=== PATIENT | female | born 1940 | race Caucasian/White ===

== ENCOUNTER 2016-11-09 13:06 | Inpatient (IN) | payer MEDICARE, OTHER ==
[~2016-11-09] VITALS: Ht 170.2 cm; Wt 84.2 kg
[~2016-11-09 13:06] MED LIST: ALLO300T2 PO; ALPR0.5T8 PO; CLOP75TA3 PO; DESV100T PO; FENT1PAT9 TOP; FUR20 PO; HYDR-4003 PO; METO25TA99 PO; NORT50CA PO; PANT20TA2 PO; PRV40T PO; TIZA2TAB3 PO
[2016-11-09 13:21] VITALS: BP 116/83; PULSE 82; RESP 16; O2SAT 98
[2016-11-09 13:51] VITALS: BP 132/61; PULSE 91; RESP 22; O2SAT 95
--- NOTE | 2016-11-09 14:02 | ED.REPORT ---
HPI-General Illness Date of Service Nov 09, 2016 ED Provider: Carl Reid Patient is a 76 year old female who presents to the ED s/p a ground level fall with LOC 6 days ago. She came to the ED after her fall but did not want to wait to be seen. Associated symptoms include nausea, vomiting, R arm pain, headache ( since resolved), chest tenderness, and abdominal pain. She is not on blood thinners but was before. She has a urology appt on the . Nursing Notes Stated Complaint: ABDOMINAL PAIN Chief Complaint: Multiple Trauma/Fall Nursing Notes Reviewed: Yes Allergies: Coded Allergies: venlafaxine (Verified Allergy, Severe, rash, 11/09/16) Pt reports bruising all over body, increased swelling hydroxyzine (Verified Allergy, Unknown, agitation, 11/09/16) Scheduled Allopurinol (Allopurinol) 300 Mg Tablet 300 MG PO HS Alprazolam (Alprazolam) 0.5 Mg Tablet 0.5 MG PO DAILY Clopidogrel Bisulfate (Plavix) 75 Mg Tablet 75 MG PO DAILY Desvenlafaxine Succinate ER (Pristiq ER) 100 Mg Tab.er.24h 50 MG PO DAILY TAKE 50MG DAILY Fentanyl 50 mcg/hr Patch (Fentanyl 50 mcg/hr Patch) 1 Each Patch.td72 1 EACH TOP Q3D Furosemide (Furosemide) 20 Mg Tab 20 MG PO DAILY Hydrocodone-Acetaminophen 5-325 mg (Hydrocodone-Acetaminophen 5-325 mg) 1 Each Tablet 2 EACH PO BID Metoprolol Succinate ER (Metoprolol Succinate ER) 25 Mg Tab.er.24h 25 MG PO BID Nortriptyline (Nortriptyline) 50 Mg Capsule 50 MG PO HS Pantoprazole DR (Pantoprazole DR) 20 Mg Tablet.dr 20 MG PO DAILY Pravastatin (Pravachol) 40 Mg Tab 40 MG PO HS Tizanidine (Tizanidine) 2 Mg Tablet 2 MG PO Q12H General Time Seen by MD: 14:02 Chief Complaint Other (Ground level fall) Hx Obtained From: Patient, Spouse Arrived By: Walk-in Past Medical History Past Medical History Unspecified CHF with mitral valve regurgitation Aortic stenosis Depression GERD Gout Anxiety/Insomnia CVA - small lacunar infarcts in bilateral BG in 2006 Chronic anemia on iron replacement therapy Renal Cell Carcinoma s/p right nephrectomy 4 years ago Breast cancer, 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 - followed by wound center Reports: Hyperlipidemia, Hypertension Reports: Renal insufficiency Past Surgical History Lumpectomy right breast Left breast mastectomy Nephrectomy of right kidney with axillary lymph node removal Left clavicular fracture repair Cholecystectomy Hysterectomy in her 30's Cataracts bilaterally Low back surgery x 2 Appendectomy Tonsillectomy Aortic valve replacement at [facility] Ovary removal Family History Father of [place] at 50, was a chronic smoker and alcoholic Mother of IA in her late 60's, was a chronic smoker and alcoholic Smoking History Never Smoker Social History [facility] [place] on November 2014. Alcohol Use: Denies alcohol use Drug Use: Denies drug use Other Social History: Good social support, , Local resident Occupation lives with Ambulatory Status Independent Review of Systems Full Review of Systems Constitutional: Denies: Fever Cardiovascular: Reports: Chest pain (tenderness ) GI: Reports: Abdominal pain (R side ), Nausea, Vomiting Musculoskeletal: Reports: Extremity pain (R arm ) Neurologic: Reports: Change LOC, Headache Complete sys rev & neg: except as marked. Physical Exam Vital Signs Vital Signs Date Time Temp Pulse Resp B/P Pulse Ox O2 Delivery O2 Flow Rate FiO2 11/09/16 13:51 36.9 91 22 132/61 95 Room Air 11/09/16 13:21 36.4 82 16 116/83 98 Room Air Initial VS: Reviewed General/Constitutional: Well-developed, Well-nourished Head / Eyes: Atraumatic, Normocephalic, PERRL Skin: Warm, Dry Neurologic: Alert, Oriented, Nonfocal Psychiatric: Mood/affect normal, Behavior normal, Normal thought content Neck: Atraumatic Midline cervical tenderness Respiratory / Chest: No respiratory distress R chest wall tenderness. Tenderness/Guarding/Rebound: Positive: Tender RUQ... Flank / Spine / Paraspinal: Negative: Lumbar spine tender..., Thoracic spine tender... Interpretation & Diagnostics Lab Results Interpretation Result Diagram: 11/09/16 1459 11/09/16 1459 Test 11/09/16 14:59 11/09/16 17:15 White Blood Count 9.5th/mm3 (3.8-10.1) Red Blood Count 4.15mil/mm3 (3.90-5.20) Hemoglobin 12.6g/dL (12.0-15.6) Hematocrit 38.5% (35.0-46.0) Mean Corpuscular Volume 92.8fL (81-100) Mean Corpuscular Hemoglobin 30.4pg (27.0-35.0) Mean Corpuscular Hemoglobin Concent 32.7% (32.0-37.0) Red Cell Distribution Width 14.9% (12.3-15.4) Platelet Count 181bil/L (150-400) Neutrophils (%) (Auto) 66.0% (40-74) Lymphocytes (%) (Auto) 23.9% (14-46) Monocytes (%) (Auto) 7.2% (4-12) Eosinophils (%) (Auto) 2.5% (0-5) Basophils (%) (Auto) 0.2% (0-3) Sodium Level 135mEq/L (134-144) Potassium Level 4.0mEq/L (3.5-5.2) Chloride Level 98mEq/L (97-108) Carbon Dioxide Level 24mmol/L (18-29) Blood Urea Nitrogen 26mg/dL (8-27) Creatinine 1.26mg/dL (0.57-1.00) Estimat Glomerular Filtration Rate 59mL/min (>59) Glucose Level 222mg/dL (60-99) Calcium Level 9.5mg/dL (8.5-10.1) Total Bilirubin 0.3mg/dL (0.0-1.2) Aspartate Amino Transf (AST/SGOT) 25U/L (0-50) Alanine Aminotransferase (ALT/SGPT) 11U/L (0-32) Alkaline Phosphatase 90U/L (25-165) Total Protein 7.0g/dL (6.4-8.4) Albumin 3.9g/dL (3.4-5.0) Urine Color Yellow (YELLOW) Urine Appearance Clear (CLEAR,HAZY) Urine pH 5.5 (5.0-8.0) Urine Specific [place] 1.015 (1.003-1.035) Urine Protein Negativemg/dL (NEG,TRACE) Urine Glucose (UA) Negativemg/dL (NEGATIVE) Urine Ketones Negativemg/dL (NEGATIVE) Urine Occult Blood Trace (NEGATIVE) Urine Nitrite Negative (NEGATIVE) Urine Bilirubin Negative (NEGATIVE) Urine Urobilinogen Normalmg/dL (NORMAL) Urine Leukocyte Esterase Trace (NEGATIVE) Urine RBC 0-2/hpf (0-2) Urine WBC 0-5/hpf (0-5) Urine Epithelial Cells None/hpf (NONE-MOD) Urine Crystals None seen (NONE SEEN) Urine Bacteria Few/hpf (NONE-FEW) Urine Hyaline Casts None/lpf (NONE) Urine Granular Casts None seen (NONE SEEN) Urine Waxy Casts None seen (NONE SEEN) Urine Red Blood Cell Casts None seen (NONE SEEN) Urine White Blood Cell Casts None seen (NONE SEEN) Urine Mucus Present (None Seen) Urine Trichomonas None seen (NONE SEEN) Urine Yeast None (NONE SEEN) Urinalysis Comment None CT Head Interpretation CT BRAIN: IMPRESSION: No acute intracranial process. Dictated by: Drew Brown M.D. on 11/09/2016 at 16:42 Approved by: Drew Brown M.D. on 11/09/2016 at 16:42 Study: Head CT no contrast Interpretation / Wet Read by: Interpret - Radiologist CT Abd / Pelvis Interpretation IMPRESSION: 1. Acute right seventh rib fracture. Chronic appearing right 7th - 11th rib fractures. 2. Small, approximately 0.7 cm in maximum diameter, wedge-shaped, hypoattenuating focus in the posterior-lateral subcapsular spleen may represent a small splenic laceration (grade 1) or subacute infarct. No splenic subcapsular hematoma identified. 3. Large low-density fluid collection with peripheral enhancement in subcutaneous fat of pelvic pannus most compatible with posterior medics seroma or abscess. Please correlate with clinical and laboratory data. 3. Atherosclerosis. 4. No free intraperitoneal fluid or air. 5. Postsurgical changes. Dictated by: Meg Amaro MD, PhD on 11/09/2016 at 17:06 Approved by: Meg Amaro MD, PhD on 11/09/2016 at 17:06 Study type: Abdominal CT IV contrast Interpretation / Wet Read by: Interpret - Radiologist CT C-Spine Interpretation IMPRESSION: 1. No acute fracture. No acute osseous lesion. If symptoms and/or clinical suspicion for pathology persists, evaluation with MRI may be helpful for further assessment. 2. Status post C4-C6 ACDF. 3. Anterior wedging of the C7 vertebral body stable compared to prior examination. Dictated by: Meg Amaro MD, PhD on 11/09/2016 at 16:51 Approved by: Meg Amaro MD, PhD on 11/09/2016 at 16:51 Study type: CT no contrast Interpretation / Wet Read by: Interpret - Radiologist Re-Eval/Medical Decision Med Decision/Clinical Course Concern with multiple rib fractures as well as a possible splenic laceration, patient is tender in left upper quadrant, we will plan to admit the patient. Given that this is a 6-day-old injury and the patient is human dynamically stable, as well as multiple medical comorbidities, trauma surgery has requested a hospitalist admit with a surgical consult. Time of Eval: 17:58 Re-Evaluation/Progress Note: Discussed plan for admission. Patient understands and agrees with plan. All questions addressed at this time. Consultation #1: Referral / Consult Name: Rishabh Cantu MD Consulted With: Surgeon Call Returned at: 17:23 Cone Winder: Will see patient, Agrees with plan Note: Discussed patient's case. Requests medicine admit and surgery consult. Consultation #2: Referral / Consult Name: Kyle Lutz MD Consulted With: Hospitalist Call Returned at: 17:55 Cone Winder: Agrees with eval, Agrees with plan, Accepts admit Note: Discussed patient's case. Accepts admit. Counseled Regarding: Diagnosis, Lab results, Need for admission Discharge & Departure Primary Impression: Rib fractures Additional Impression: Splenic laceration Disposition: ADMITTED TO HOSPITAL Referrals: Krish Armstrong MD (PCP) Scribe Attestation Portions of this note were transcribed by Isai Singh. I, Dr. Reid personally performed the history, physical exam and medical decision-making; I reviewed and confirmed the accuracy of the information in the transcribed note. Signed by: Isai Singh 11/09/16, 0566 copies to: Krish Armstrong MD, Timothy S DO Nov 09, 2016 14:02 ISAI SINGH Nov 09, 2016 14:11
[2016-11-09] MEDS ORDERED: Ondansetron 2 mg/mL 2 mL Inj IVPUSH ONE (14:40)
[2016-11-09] MEDS ORDERED: 0.9% Sodium Chloride 1,000 ML IV ONE (14:40)
[2016-11-09] MEDS ORDERED: HYDROmorphone 0.5 mg/0.5 mL iSecure Syringe IVPUSH PRN ×2 (14:40→23:05)
[2016-11-09 15:10] LABS: BASOPHILS % (AUTO) 0.2 % (0-3); EOSINOPHILS % (AUTO) 2.5 % (0-5); MONOCYTES % (AUTO) 7.2 % (4-12); Mean Corpuscular Hemoglobin 30.4 pg (27.0-35.0); Mean Corpuscular Volume 92.8 fL (81-100); Platelet Count 181 bil/L (150-400)
--- NOTE | 2016-11-09 16:43 | DRSVH ---
PROCEDURE: CT BRAIN WITHOUT CONTRAST ([id number]) INDICATIONS: fall, right chest and abd pain TECHNIQUE: Noncontrast 4.5 mm thick angled axial sections acquired from the foramen magnum to the vertex, with c oronal reformats. COMPARISON: [facility], CT, BRAIN W/O CONTRAST, 07/27/2007, 15:50. FINDINGS: Image quality: Excellent. CSF spaces: Basal cisterns are patent. No extra-axial fluid collections. The ventricles are symmet opal in size and shape. Brain: No intracranial bleeds or masses. There is cerebral volume loss for age, with resultant vent ricular and sulcal prominence. There are periventricular and deep white matter chronic small vessel ischemic changes. There is intracranial internal carotid artery atherosclerosis. Skull and face: Calvarium and visualized facial bones appear intact, without suspicious lesions. Sinuses: Visualized sinuses and mastoids are clear. IMPRESSION: No acute intracranial process. Dictated by: Drew Brown M.D. on 11/09/2016 at 16:42 Approved by: Drew Brown M.D. on 11/09/2016 at 16:42
--- NOTE | 2016-11-09 16:52 | DRSVH ---
PROCEDURE: CT CERVICAL SPINE WITHOUT CONTRAST ([id number]) INDICATIONS: fall, right chest and abd pain TECHNIQUE: Noncontrast 3 mm thick sections acquired from the skull base to the T4 level. Sagittal and coronal r eformats were then constructed. For radiation dose reduction, the following was used: automated exp osure control, adjustment of mA and/or kV according to patient size. COMPARISON: [facility], CT, C-SPINE W/O CONTRAST, 04/25/2015, 16:18. FINDINGS: Image quality: Excellent. Bones: Postsurgical changes compatible with C4-C6 ACDF noted. Anterior wedging of the C7 vertebral b kali is stable compared prior CT scan. No acute fractures or dislocations. Visualized superior ribs a re intact. Multilevel degenerative disc disease and facet arthropathy are noted. Soft tissues: Prevertebral soft tissues are normal in thickness. No paravertebral hematomas. No ap ical pneumothoraces. 7 mm hypoattenuating nodule noted in the left lobe of the thyroid gland. Atheros clerotic calcifications noted. IMPRESSION: 1. No acute fracture. No acute osseous lesion. If symptoms and/or clinical suspicion for pathology pe rsists, evaluation with MRI may be helpful for further assessment. 2. Status post C4-C6 ACDF. 3. Anterior wedging of the C7 vertebral body stable compared to prior examination. Dictated by: Meg Amaro MD, PhD on 11/09/2016 at 16:51 Approved by: Meg Amaro MD, PhD on 11/09/2016 at 16:51
--- NOTE | 2016-11-09 17:07 | DRSVH ---
PROCEDURE: CT CHEST, ABDOMEN AND PELVIS WITH CONTRAST ([id number]) INDICATIONS: fall, right chest and abd pain TECHNIQUE: After the administration of intravenous contrast, 5 mm thick sections acquired from the lung apices t o the symphysis. 5 mm thick coronal and sagittal reformats were acquired. Additional 7 mm thick cor onal maximum intensity projection (MIP) reformats acquired through the lungs. Optional 10-minute del ayed imaging may be performed from the kidneys to the bladder. For radiation dose reduction, the fol lowing was used: automated exposure control, adjustment of mA and/or kV according to patient size. COMPARISON: None. FINDINGS: Image quality: Excellent. CHEST: Lungs: No pulmonary contusions or lacerations. No acute airspace opacities. No pneumothorax or hem othorax. Central and peripheral airways appear patent and normal in caliber. Mediastinum: No mediastinal hematomas. Heart size is normal. Prosthetic aortic valve noted. Dense a therosclerotic ossifications noted in the aorta, great vessels and the coronary vasculature. No peric ardial effusion. Thoracic aorta and pulmonary arteries demonstrate normal size and enhancement. No mediastinal or hilar adenopathy. Esophagus is normal in caliber. No hiatal hernia. Chest wall: Postsurgical changes compatible with prior right mastectomy and right axillary node diss ection noted. Chronic appearing left posterior seventh-11th rib fractures are noted. Acute appearing right lateral sixth rib fracture is noted. No subcutaneous emphysema. No axillary or supraclavicular adenopathy. Thyroid gland contains a 0.7 cm in diameter hypoattenuating nodule in the left lobe.. ABDOMEN: Solid organs: Liver and spleen are normal in size. Small, wedge-shaped hypoattenuating focus is note d in the posterior lateral periphery of the spleen (series 8, image [id number] which may represent a small , approximately 0.7 cm subcapsular laceration versus small subacute infarct in. No splenic subcapsula r hematoma is identified. Gallbladder surgically absent. Biliary system is non-dilated. Pancreas en hances normally, without transection. Fatty atrophy of the pancreas is noted. No adrenal hematomas. Both kidneys enhance normally, without hydronephrosis or lacerations. Right kidney is absent; please correlate with surgical history. Left renal cysts are noted. Peritoneum and bowel: No free fluid or air. Unenhanced bowel loops demonstrate normal wall thicknes s and caliber. Nodes and vessels: No retroperitoneal or mesenteric adenopathy. Aorta and inferior vena cava are no rmal in size and enhancement. Scattered atherosclerotic calcifications are noted in the abdominal pel mirna vasculature. Miscellaneous: No ventral hernias. PELVIS: Genitourinary: Bladder wall thickness is normal. Miscellaneous: No inguinal hernias or adenopathy. There is a 4.2 x 12.5 x 15.7 cm fluid collection i n the anterior subcutaneous fat of the pelvic pannus. The subcutaneous fluid collection has an enhanc ing wall may represent posttraumatic seroma or abscess. Please correlate with clinical and laboratory data. Multiple injection granulomas noted in the liver the subcutaneous fat of the buttocks bilatera lly. Bones: Pelvic ring and hip joints appear intact. No vertebral compression fractures. Degenerative d isc disease and facet arthropathy are noted in the spine. Convex left curvature of the lumbar junctio n is noted. Postsurgical changes compatible with lower lumbar spine laminectomy is noted. IMPRESSION: 1. Acute right seventh rib fracture. Chronic appearing right 7th - 11th rib fractures. 2. Small, approximately 0.7 cm in maximum diameter, wedge-shaped, hypoattenuating focus in the neurology director ior-lateral subcapsular spleen may represent a small splenic laceration (grade 1) or subacute infarct . No splenic subcapsular hematoma identified. 3. Large low-density fluid collection with peripheral enhancement in subcutaneous fat of pelvic nfetaly s most compatible with posterior medics seroma or abscess. Please correlate with clinical and laborat ory data. 3. Atherosclerosis. 4. No free intraperitoneal fluid or air. 5. Postsurgical changes. Dictated by: Meg Amaro MD, PhD on 11/09/2016 at 17:06 Approved by: eMg Amaro MD, PhD on 11/09/2016 at 17:06
[2016-11-09] MEDS: fentaNYL-PF 50 mCg/mL 2 mL Inj IVPUSH PRN ×2 (17:40→18:24)
[2016-11-09 17:47] LABS: APPEARANCE,URINE CLEAR (CLEAR,HAZY); COLOR,URINE YELLOW (YELLOW)
[2016-11-09 17:48] LABS: OCCULT BLOOD,URINE TRACE (NEGATIVE); PH,URINE 5.5 (5.0-8.0); UROBILINOGEN,URINE NORMAL (NORMAL)
[2016-11-09 18:00] VITALS: BP 146/65; PULSE 80; RESP 16; O2SAT 98
[2016-11-09] MEDS ORDERED: Ondansetron 2 mg/mL 2 mL Inj IVPUSH PRN (18:05)
[2016-11-09] MEDS ORDERED: Alum-Mag Hydrox-Simeth 30 mL Suspension PO PRN (18:05)
[2016-11-09 20:06] VITALS: PULSE 97; RESP 18; O2SAT 96
[2016-11-09 20:07] VITALS: PULSE 97; RESP 18; O2SAT 96
[2016-11-09 20:20] VITALS: BP 143/81; PULSE 72; RESP 20; O2SAT 98
--- NOTE | 2016-11-09 21:03 | PCM.HPMED ---
Subjective Date of Service Nov 09, 2016 Primary Provider: Admitting Physician: Kyle Lutz MD Primary Care Physician: Krish Armstrong MD Attending Physician: Kyle Lutz MD Chief Complaint: right sided pain ongoing HISTORY was OBTAINED FROM PATIENT / MEDITECH NOTES History of present illness 76-year-old female, ground-level fall with LOC 5days ago, picked up candy off ground but stood up too fast became lightheaded fell to right side then did not want to wait in the ER to be seen at that time, NOW presented today due to worsening pain-Right ribs-flank, nausea w/ resolved headache. On asa and plavix since TAVR a few weeks ago at w/ ongoing incision groin pain. chronic arthritis pain wallace right shoulder-fent patch/norco at baseline. Generally orthostatic lightheadness is mildly better since TAVR w/ known AoStenosis since at least 04/2016. Review of Systems - none of the following - F/C/sick contact / wt change/ sob / cough / cp / acid reflux / n/v/diarrhea / bleeding/bruising / leg swelling / change in voiding Pending urology visit Scheduled Allopurinol (Allopurinol) 300 Mg Tablet 300 MG PO HS Alprazolam (Alprazolam) 0.5 Mg Tablet 0.5 MG PO DAILY Clopidogrel Bisulfate (Plavix) 75 Mg Tablet 75 MG PO DAILY Desvenlafaxine Succinate ER (Pristiq ER) 100 Mg Tab.er.24h 50 MG PO DAILY TAKE 50MG DAILY Fentanyl 50 mcg/hr Patch (Fentanyl 50 mcg/hr Patch) 1 Each Patch.td72 1 EACH TOP Q3D Furosemide (Furosemide) 20 Mg Tab 20 MG PO DAILY Hydrocodone-Acetaminophen 5-325 mg (Hydrocodone-Acetaminophen 5-325 mg) 1 Each Tablet 2 EACH PO BID Metoprolol Succinate ER (Metoprolol Succinate ER) 25 Mg Tab.er.24h 25 MG PO BID Nortriptyline (Nortriptyline) 50 Mg Capsule 50 MG PO HS Pantoprazole DR (Pantoprazole DR) 20 Mg Tablet.dr 20 MG PO DAILY Pravastatin (Pravachol) 40 Mg Tab 40 MG PO HS Tizanidine (Tizanidine) 2 Mg Tablet 2 MG PO Q12H Past Medical History Unspecified CHF with mitral valve regurgitation Aortic stenosis s/p TAVR Depression GERD Gout Anxiety/Insomnia CVA - small lacunar infarcts in bilateral BG in 2006 Chronic anemia on iron replacement therapy Renal Cell Carcinoma s/p right nephrectomy Breast cancer, 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 - followed by wound center Hyperlipidemia, Hypertension renal insufficiency Past Surgical History Left clavicular fracture repair Cholecystectomy Hysterectomy in her 30's Cataracts bilaterally c spine and Low back surgeries Appendectomy Tonsillectomy Ovary removal Family History Father of [place] at 50, was a chronic smoker and alcoholic Mother of [place] in her late 60's, was a chronic smoker and alcoholic social History Never Smoker Allergies Coded Allergies: venlafaxine (Verified Allergy, Severe, rash, 11/09/16) Pt reports bruising all over body, increased swelling hydroxyzine (Verified Allergy, Unknown, agitation, 11/09/16) PMH Social History Hx Alcohol Use: No Hx Substance Use: No Hx Tobacco Use: No Smoking Status: Never Smoker Exam Vital Signs Vital Sign - Last Date Time Temp Pulse Resp B/P Pulse Ox O2 Delivery O2 Flow Rate FiO2 11/09/16 20:07 36.9 97 18 96 Room Air Lab and Diagnostics Labs Exam on admission 2L O2 NAD A and O x 3 mood affect WNL NC/AT no icterus no injected eyes EOMI PERRL /no pharyngeal lesions/ no oral lesions / hearing intact Supple neck CTAB equal chest rise / no accessory muscle use / speaks in full sentences / no rrw RRR S1 S2 / no mrg / 2+ radial pulses Soft nt nd + BS no hepatosplenomegaly No edema no cyanosis no ecchymosis of lower extremities No rash / no jaundice GARNER CT BRAIN WITHOUT CONTRAST ([id number]) INDICATIONS: fall, right chest and abd pain TECHNIQUE: Noncontrast 4.5 mm thick angled axial sections acquired from the foramen magnum to the vertex, with coronal reformats. COMPARISON: [facility], CT, BRAIN W/O CONTRAST, 07/27/2007, 15:50. FINDINGS: Image quality: Excellent. CSF spaces: Basal cisterns are patent. No extra-axial fluid collections. The ventricles are symmetric in size and shape. Brain: No intracranial bleeds or masses. There is cerebral volume loss for age , with resultant ventricular and sulcal prominence. There are periventricular and deep white matter chronic small vessel ischemic changes. There is intracranial internal carotid artery atherosclerosis. Skull and face: Calvarium and visualized facial bones appear intact, without suspicious lesions. Sinuses: Visualized sinuses and mastoids are clear. IMPRESSION: No acute intracranial process. CT CERVICAL SPINE WITHOUT CONTRAST ([id number]) INDICATIONS: fall, right chest and abd pain TECHNIQUE: Noncontrast 3 mm thick sections acquired from the skull base to the T4 level. Sagittal and coronal reformats were then constructed. For radiation dose reduction, the following was used: automated exposure control, adjustment of mA and/or kV according to patient size. COMPARISON: [facility], CT, C-SPINE W/O CONTRAST, 04/25/2015, 16:18. FINDINGS: Image quality: Excellent. Bones: Postsurgical changes compatible with C4-C6 ACDF noted. Anterior wedging of the C7 vertebral body is stable compared prior CT scan. No acute fractures or dislocations. Visualized superior ribs are intact. Multilevel degenerative disc disease and facet arthropathy are noted. Soft tissues: Prevertebral soft tissues are normal in thickness. No paravertebral hematomas. No apical pneumothoraces. 7 mm hypoattenuating nodule noted in the left lobe of the thyroid gland. Atherosclerotic calcifications noted. IMPRESSION: 1. No acute fracture. No acute osseous lesion. If symptoms and/or clinical suspicion for pathology persists, evaluation with MRI may be helpful for further assessment. 2. Status post C4-C6 ACDF. 3. Anterior wedging of the C7 vertebral body stable compared to prior examination. CT CHEST, ABDOMEN AND PELVIS WITH CONTRAST ([id number]) INDICATIONS: fall, right chest and abd pain TECHNIQUE: After the administration of intravenous contrast, 5 mm thick sections acquired from the lung apices to the symphysis. 5 mm thick coronal and sagittal reformats were acquired. Additional 7 mm thick coronal maximum intensity projection (MIP) reformats acquired through the lungs. Optional 10-minute delayed imaging may be performed from the kidneys to the bladder. For radiation dose reduction, the following was used: automated exposure control, adjustment of mA and/or kV according to patient size. COMPARISON: None. FINDINGS: Image quality: Excellent. CHEST: Lungs: No pulmonary contusions or lacerations. No acute airspace opacities. No pneumothorax or hemothorax. Central and peripheral airways appear patent and normal in caliber. Mediastinum: No mediastinal hematomas. Heart size is normal. Prosthetic aortic valve noted. Dense atherosclerotic ossifications noted in the aorta, great vessels and the coronary vasculature. No pericardial effusion. Thoracic aorta and pulmonary arteries demonstrate normal size and enhancement. No mediastinal or hilar adenopathy. Esophagus is normal in caliber. No hiatal hernia. Chest wall: Postsurgical changes compatible with prior right mastectomy and right axillary node dissection noted. Chronic appearing left posterior seventh- 11th rib fractures are noted. Acute appearing right lateral sixth rib fracture is noted. No subcutaneous emphysema. No axillary or supraclavicular adenopathy. Thyroid gland contains a 0.7 cm in diameter hypoattenuating nodule in the left lobe.. ABDOMEN: Solid organs: Liver and spleen are normal in size. Small, wedge-shaped hypoattenuating focus is noted in the posterior lateral periphery of the spleen (series 8, image [id number] which may represent a small, approximately 0.7 cm subcapsular laceration versus small subacute infarct in. No splenic subcapsular hematoma is identified. Gallbladder surgically absent. Biliary system is non- dilated. Pancreas enhances normally, without transection. Fatty atrophy of the pancreas is noted. No adrenal hematomas. Both kidneys enhance normally, without hydronephrosis or lacerations. Right kidney is absent; please correlate with surgical history. Left renal cysts are noted. Peritoneum and bowel: No free fluid or air. Unenhanced bowel loops demonstrate normal wall thickness and caliber. Nodes and vessels: No retroperitoneal or mesenteric adenopathy. Aorta and inferior vena cava are normal in size and enhancement. Scattered atherosclerotic calcifications are noted in the abdominal pelvic vasculature. Miscellaneous: No ventral hernias. PELVIS: Genitourinary: Bladder wall thickness is normal. Miscellaneous: No inguinal hernias or adenopathy. There is a 4.2 x 12.5 x 15.7 cm fluid collection in the anterior subcutaneous fat of the pelvic pannus. The subcutaneous fluid collection has an enhancing wall may represent posttraumatic seroma or abscess. Please correlate with clinical and laboratory data. Multiple injection granulomas noted in the liver the subcutaneous fat of the buttocks bilaterally. Bones: Pelvic ring and hip joints appear intact. No vertebral compression fractures. Degenerative disc disease and facet arthropathy are noted in the spine. Convex left curvature of the lumbar junction is noted. Postsurgical changes compatible with lower lumbar spine laminectomy is noted. IMPRESSION: 1. Acute right seventh rib fracture. Chronic appearing right 7th - 11th rib fractures. 2. Small, approximately 0.7 cm in maximum diameter, wedge-shaped, hypoattenuating focus in the posterior-lateral subcapsular spleen may represent a small splenic laceration (grade 1) or subacute infarct. No splenic subcapsular hematoma identified. 3. Large low-density fluid collection with peripheral enhancement in subcutaneous fat of pelvic pannus most compatible with posterior medics seroma or abscess. Please correlate with clinical and laboratory data. 3. Atherosclerosis. 4. No free intraperitoneal fluid or air. 5. Postsurgical changes. Result Diagram: 11/09/16 1459 11/09/16 1456 Assessment & Plan Active issues and reason for admission 76-year-old female, on dual antiplatlet for recent TAVR, possibly w/ grade 1 splenic laceration with R rib fractures due to ground-level fall 5 days ago. Right rib fracture/chronic pain/opioid abuse hx -- General surgeon Delvis Cantu monitoring -recommended SCHO[employer] EXAMINER for Right rib fracutre, aware of radiographic abdominal subcutaneous finding (multiple paracentesis hx w/o etiology) and questionable splenic lac -- consider dc fent patch and norco w/ SCHOOL EXAMINER dilaudid --close monitor TAVR, stable Hg from 2 months ago, fell 5 days ago --Qday Hg, monitor --curbsided Dr. Geronimo watchmaker apprentice - recommended to keep plavix/asa, consdier holding plavix if splenic lac/Hg worsens Chronic issues known prior to admission, present on admission dCHF with mitral valve regurgitation Aortic stenosis s/p TAVR Depression GERD Gout Anxiety/Insomnia CVA - small lacunar infarcts in bilateral BG in 2006 Chronic anemia on iron replacement therapy Renal Cell Carcinoma s/p right nephrectomy Breast cancer, estrogen dependent s/p tamoxifen h/o GI bleeding mild dementia chronic wound right great toe - followed by wound center Hyperlipidemia, Hypertension renal insufficiency --resume all home meds Diet cardiac DVT prophylaxis scd Code full Disposition inpatient status Assessment and plan were discussed with patient. Kyle Lutz MD Nov 09, 2016 21:03 Kyle Lutz MD Nov 09, 2016 21:03
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
[2016-11-09] MEDS: HYDROcodone-APAP 5-325 mg Tablet PO SCH (23:15)
[2016-11-09] MEDS: MeTOProlol XL 25 mg ER24 Tablet PO SCH (23:20)
[2016-11-10] VITALS (11 sets, daily range): BP systolic 128–152; BP diastolic 69–84; PULSE 87–96; RESP 12–20; O2SAT 91–98
[2016-11-10] MEDS ORDERED: Glucose 40% Oral Gel 15 Gm Tube PO PRN (00:05)
[2016-11-10] MEDS: Dextrose 5% 500 ML IV SCH ×2 (01:03→23:34)
[2016-11-10] MEDS: HYDROmorphone PCA 0.2 mg/mL 30 mL Inj IV PRN ×2 (01:03→14:53)
--- NOTE | 2016-11-10 02:24 | NUR ---
Admit to Room 1024 Patient arrived to room 1024 at 2019 via gurney accompanied by ER staff. VSS. Pt reported pain at a 8/10 on pain scaled. Pain medication administered. Patient was a little forgetful in regards to home meds. Per pt, her is in charge of giving her all medications. Patient cooperative . Call light in reach.
[2016-11-10 06:01] LABS: BASOPHILS % (AUTO) 0.3 % (0-3); EOSINOPHILS % (AUTO) 3.4 % (0-5); MONOCYTES % (AUTO) 6.8 % (4-12); Mean Corpuscular Hemoglobin 29.9 pg (27.0-35.0); Mean Corpuscular Volume 93.4 fL (81-100); NEUTROPHILS % (AUTO) 54.2 % (40-74); Platelet Count 168 bil/L (150-400)
[2016-11-10] MEDS: ALPRAZolam 0.5 mg Tablet PO SCH (08:20)
[2016-11-10] MEDS: Pantoprazole 20 mg ER24 Tablet PO SCH (08:20)
[2016-11-10] MEDS: MeTOProlol XL 25 mg ER24 Tablet PO SCH ×2 (08:21→21:44)
[2016-11-10] MEDS: Insulin LISPRO 300 Unit/3 mL Inj SUBQ SCH ×4 (08:23→21:44)
[2016-11-10] MEDS: HYDROcodone-APAP 5-325 mg Tablet PO SCH (08:30)
[2016-11-10] MEDS ORDERED: PRISTIQ 50 MG PO SCH (08:30)
--- NOTE | 2016-11-10 09:53 | DRSVH ---
PROCEDURE: X-RAY CHEST ONE VIEW, PORTABLE ([id number]) INDICATIONS: right rib fracture TECHNIQUE: One view of the chest was acquired. COMPARISON: [facility], CT, CT CHEST ABD PELVIS W CON, 11/09/2016, 16:22. [facility], CR, XR CHEST 1VW (PORTABLE), 08/31/2016, 5:55. FINDINGS: Surgical changes and devices: Cholecystectomy clips. Right axillary surgical clips.. Lungs and pleura: No pleural effusions or pneumothorax. Lungs are clear. Elevation of the right he midiaphragm redemonstrated. Mediastinum: Mediastinal contours appear normal. Heart size is normal. Bones and chest wall: No change in minimally displaced acute right sixth posterior-lateral rib fractu re. Lower cervical spine fixation hardware redemonstrated. IMPRESSION: 1. No change in mildly displaced right sixth posterior lateral rib fracture and no pneumothorax is se en. Dictated by: Steve SIMMONS Interpreted: Anu Amos MD on 11/10/2016 at 9:53 Transcribed by: RODNEY on 11/10/2016 at 9:53 Approved by: Anu Amos M.D. on 11/10/2016 at 16:14
--- NOTE | 2016-11-10 11:54 | PCM.PNMED ---
Subjective Date of Service Nov 10, 2016 Subjective Patient notes some right sided chest pain. He denies any shortness of breath. She has not really been very active or mobile since she has been here. Exam Vital Signs Vital Sign - Last Date Time Temp Pulse Resp B/P Pulse Ox O2 Delivery O2 Flow Rate FiO2 11/10/16 08:36 Supplement Oxygen 11/10/16 06:07 14 93 11/10/16 05:01 36.9 96 148/78 Intake and Output 11/09/16 11/09/16 11/10/16 Cumulative From/Thru 15:00 23:00 07:00 11/09/16 13:21 - 11/10/16 06:07 Intake Total 999 ml 498 ml 1497 ml Output Total 750 ml 750 ml Balance 999 ml -252 ml 747 ml Intake Oral 450 ml 450 ml IV Total 999 ml 48 ml 1047 ml Output Urine Total 750 ml 750 ml # Voids 3 3 # Bowel Movements 0 0 Exam Constitutional: Pleasant elderly lady who appears in mild pain distress Head: Normocephalic and medical Eyes: PERRLA DC EOMI Chest: Clear to auscultation there is tenderness over the right chest wall area Abdomen: Soft mild tenderness in the upper quadrants bilaterally. No rebound no guarding Extremities: No pedal edema Neuro: Alert and oriented 3, motor strength is intact bilaterally Psych: Mood and affect are appropriate Lab and Diagnostics Laboratory Tests 72 Hours Test 11/09/16 14:59 11/09/16 17:15 11/10/16 05:40 White Blood Count 9.5th/mm3 (3.8-10.1) 7.7th/mm3 (3.8-10.1) Red Blood Count 4.15mil/mm3 (3.90-5.20) 3.91mil/mm3 (3.90-5.20) Hemoglobin 12.6g/dL (12.0-15.6) 11.7g/dL (12.0-15.6) Hematocrit 38.5% (35.0-46.0) 36.5% (35.0-46.0) Mean Corpuscular Volume 92.8fL (81-100) 93.4fL (81-100) Mean Corpuscular Hemoglobin 30.4pg (27.0-35.0) 29.9pg (27.0-35.0) Mean Corpuscular Hemoglobin Concent 32.7% (32.0-37.0) 32.1% (32.0-37.0) Red Cell Distribution Width 14.9% (12.3-15.4) 15.0% (12.3-15.4) Platelet Count 181bil/L (150-400) 168bil/L (150-400) Neutrophils (%) (Auto) 66.0% (40-74) 54.2% (40-74) Lymphocytes (%) (Auto) 23.9% (14-46) 35.2% (14-46) Monocytes (%) (Auto) 7.2% (4-12) 6.8% (4-12) Eosinophils (%) (Auto) 2.5% (0-5) 3.4% (0-5) Basophils (%) (Auto) 0.2% (0-3) 0.3% (0-3) Sodium Level 135mEq/L (134-144) 136mEq/L (134-144) Potassium Level 4.0mEq/L (3.5-5.2) 4.1mEq/L (3.5-5.2) Chloride Level 98mEq/L (97-108) 99mEq/L (97-108) Carbon Dioxide Level 24mmol/L (18-29) 25mmol/L (18-29) Blood Urea Nitrogen 26mg/dL (8-27) 22mg/dL (8-27) Creatinine 1.26mg/dL (0.57-1.00) 1.04mg/dL (0.57-1.00) Estimat Glomerular Filtration Rate 59mL/min (>59) 73mL/min (>59) Glucose Level 222mg/dL (60-99) 161mg/dL (60-99) Calcium Level 9.5mg/dL (8.5-10.1) 9.1mg/dL (8.5-10.1) Total Bilirubin 0.3mg/dL (0.0-1.2) Aspartate Amino Transf (AST/SGOT) 25U/L (0-50) Alanine Aminotransferase (ALT/SGPT) 11U/L (0-32) Alkaline Phosphatase 90U/L (25-165) Total Protein 7.0g/dL (6.4-8.4) Albumin 3.9g/dL (3.4-5.0) Urine Color Yellow (YELLOW) Urine Appearance Clear (CLEAR,HAZY) Urine pH 5.5 (5.0-8.0) Urine Specific [place] 1.015 (1.003-1.035) Urine Protein Negativemg/dL (NEG,TRACE) Urine Glucose (UA) Negativemg/dL (NEGATIVE) Urine Ketones Negativemg/dL (NEGATIVE) Urine Occult Blood Trace (NEGATIVE) Urine Nitrite Negative (NEGATIVE) Urine Bilirubin Negative (NEGATIVE) Urine Urobilinogen Normalmg/dL (NORMAL) Urine Leukocyte Esterase Trace (NEGATIVE) Urine RBC 0-2/hpf (0-2) Urine WBC 0-5/hpf (0-5) Urine Epithelial Cells None/hpf (NONE-MOD) Urine Crystals None seen (NONE SEEN) Urine Bacteria Few/hpf (NONE-FEW) Urine Hyaline Casts None/lpf (NONE) Urine Granular Casts None seen (NONE SEEN) Urine Waxy Casts None seen (NONE SEEN) Urine Red Blood Cell Casts None seen (NONE SEEN) Urine White Blood Cell Casts None seen (NONE SEEN) Urine Mucus Present (None Seen) Urine Trichomonas None seen (NONE SEEN) Urine Yeast None (NONE SEEN) Urinalysis Comment None Result Diagram: 11/10/16 0540 11/10/16 0540 X-Rays, CTs and MRIs Patient Name: RUBEN MERINO MR#: [id number] Location: [facility] [place] Ordering Phys: Rishabh Cantu MD Date of Service: 11/10/16 0500 Caution: Report not yet finalized and possibly incomplete! PROCEDURE: X-RAY CHEST ONE VIEW, PORTABLE ([id number]) INDICATIONS: right rib fracture TECHNIQUE: One view of the chest was acquired. COMPARISON: [facility], CT, CT CHEST ABD PELVIS W CON, 11/09/2016, 16:22. [facility], CR, XR CHEST 1VW (PORTABLE), 08/31/2016, 5:55. FINDINGS: Surgical changes and devices: Cholecystectomy clips. Right axillary surgical clips.. Lungs and pleura: No pleural effusions or pneumothorax. Lungs are clear. Elevation of the right hemidiaphragm redemonstrated. Mediastinum: Mediastinal contours appear normal. Heart size is normal. Bones and chest wall: No change in minimally displaced acute right sixth posterior-lateral rib fracture. Lower cervical spine fixation hardware redemonstrated. IMPRESSION: 1. No change in mildly displaced right sixth posterior lateral rib fracture and no pneumothorax is seen. Dictated by: Steve Rice RRA Interpreted: Anu Amos MD on 11/10/2016 at 9: 53 Transcribed by: RODNEY on 11/10/2016 at 9:53 Assessment & Plan Active issues and reason for admission 76-year-old female, on dual antiplatlet for recent TAVR, possibly w/ grade 1 splenic laceration with R rib fractures due to ground-level fall 5 days ago. Right rib fracture/chronic pain/opioid abuse hx -- General surgeon Delvis Cantu monitoring -recommended STEEL HANGER for Right rib fracutre, aware of radiographic abdominal subcutaneous finding (multiple paracentesis hx w/o etiology) and questionable splenic lac -- consider dc fent patch and norco w/ STEEL HANGER dilaudid --close monitor -Repeat labs and repeat chest x-ray revealed no acute findings -Appreciate surgical input -We will proceed with physical therapy consultation today to ensure safety when discharged TAVR, stable Hg from 2 months ago, fell 5 days ago --Qday Hg, monitor --curbsided Dr. Geronimo eight arm operator - recommended to keep plavix/asa, consdier holding plavix if splenic lac/Hg worsens Chronic issues known prior to admission, present on admission dCHF with mitral valve regurgitation Aortic stenosis s/p TAVR Depression GERD Gout Anxiety/Insomnia CVA - small lacunar infarcts in bilateral BG in 2006 Chronic anemia on iron replacement therapy Renal Cell Carcinoma s/p right nephrectomy Breast cancer, estrogen dependent s/p tamoxifen h/o GI bleeding mild dementia chronic wound right great toe - followed by wound center Hyperlipidemia, Hypertension renal insufficiency --resume all home meds Diet cardiac DVT prophylaxis scd Code full Disposition inpatient status Assessment and plan were discussed with patient. Pain Evaluation: Adequate Pain Control VTE Mechanical Devices: Intermittant Pneumatic CD Time spent 30 minutes Fabiana Schreiber MD Nov 10, 2016 11:54
--- NOTE | 2016-11-10 13:28 | NUR ---
Transfer Patient transferred to room 247 -1. Report given to [place] receiving nurse. Pt's son notified of room transfer.
--- NOTE | 2016-11-10 14:48 | PROG NOTE ---
[address] [address] PROGRESS NOTE PATIENT: RUBEN MERINO : 1940 MR#: [id number] ADMIT: 11/09/2016 JOB ID: [id number] DATE: 11/10/2016 SUBJECTIVE: The patient is seen in followup after admission yesterday evening because of her fall almost a week ago resulting in a right rib fracture. She is still having pain. She denies nausea or vomiting. She denies shortness of breath. REVIEW OF SYSTEMS: Otherwise negative. She has not been out of bed yet today. PHYSICAL EXAMINATION: Temperature is 37.0, brachial blood pressure 128/69, pulse 88, respiratory rate 16, O2 sat on room air is 93%. She is alert. She actually is smiling and looks much more comfortable than yesterday. Right-sided chest wall tenderness as before from her rib fracture. No crepitus. LABORATORY RESULTS: White blood cell count has fallen to 7.7, hematocrit is 36.5, platelet count 168,000. Her glucose is down to 161. Creatinine is down to 1.04. Electrolytes are normal. Chest x-ray: No pneumothorax. IMPRESSION: Clinically stable. PLAN: Ambulate.
--- NOTE | 2016-11-10 14:58 | NUR ---
Case Management: Attempted to give IMM at 2:55 pm, PT working with patient. Will try again later. ANTOLIN Esposito RN
--- NOTE | 2016-11-10 17:51 | NUR ---
Case Management: IMM explained to patient and her son at 1700, all questions answered. Signed copy placed in chart, copy given to patient. Alicia Newton RN
--- NOTE | 2016-11-10 18:10 | NUR ---
pain/activity assumed care of patient at 1515. patient states pain "8/10" at 1515. reinforced vice president of engineering teaching and patient currently states pain is "better". "6/10". continuous pulse oximetry in place and patient sats mid to high 90's on 2 liters. patient up with physical therapy to bathroom and back to bed with nursing staff with walker and one person assist. tolerated well. new iv placed per iv therapy per patient request. will give report to onccristian mohamud at 1900.
--- NOTE | 2016-11-10 19:36 | NUR ---
pain management noted that pain level has decreased since my arrival on shift from "8 to "04/03". patient sitting up in bed all of shift and visiting with family and staff. noted that patient has fentanyl patch 50cmg/hr on and ordered in addition to litigation claim representative dilaudid with standard settings and scheduled BID norco 5/325. Dr. Schreiber called and notified that patient on fentanyl patch, litigation claim representative dilaudid with standard settings and scheduled norco. orders received to discontinue norco. orders written and norco dc'd. continuous pulse ox remains in place and patient sats 99% on 2 liters. alert and awake and finishing dinner currently. noc cade laguerre updated.
[2016-11-11] VITALS (7 sets, daily range): BP systolic 121–166; BP diastolic 69–85; PULSE 91–97; RESP 16; O2SAT 95–97
--- NOTE | 2016-11-11 02:26 | NUR ---
O2 Sats Report had been given that patient was having good o2 sats in the mid to high 90s on 2L. Pt has not been tolerating this rate tonight, requiring 3-4L NC and sats in mid to high 90s now.
[2016-11-11] MEDS: HYDROmorphone PCA 0.2 mg/mL 30 mL Inj IV PRN (02:33)
--- NOTE | 2016-11-11 05:57 | NUR ---
Ambulation Pt able to ambulate BRP w/ walker w/o difficulty. Improvement from before where pt required BSC.
[2016-11-11] MEDS: Insulin LISPRO 300 Unit/3 mL Inj SUBQ SCH ×4 (07:50→21:07)
[2016-11-11] MEDS: MeTOProlol XL 25 mg ER24 Tablet PO SCH ×2 (08:03→20:19)
[2016-11-11] MEDS: Pantoprazole 20 mg ER24 Tablet PO SCH (08:03)
--- NOTE | 2016-11-11 09:07 | NUR ---
Social Work: Initial Assessment Data: Pt is a 76 y/o female admitted for splenic lac. rib rx. Pt's PCP is Dr Armstrong, pt's insurance is Medicare with [employer] ins supp. Pt readmit score is 4. EMR reviewed, AIR TABLE OPERATOR met with pt at bedside, role explained. Pt states that she lives with her in [place] where she uses a walker and cane at baseline. There are two steps to enter her home. Pt states that she does not drive but has family members for transportation needs. Pt states she has HH history in [place] and locally, but does not remember the company name. Pt reports no SNF history, no LTC or VA benefits, pt is not a caregiver at home. Pt states family can provide transportation home if needed. PT is recommending SNF at this time, pt walking 60 feet with FWW. SNF choice list given. Pt states preference for [facility] or [facility] [place] as they are located near her home and family. AIR TABLE OPERATOR called UR specialist and requested she refer pt to these locations. AIR TABLE OPERATOR will continue to follow. Assessment: Pt who is independent at baseline, cane and walker at baseline. Plan: Pt will likely d/c to SNF when medically stable, [facility] or [facility] [place] will be referred by UR specialist. AIR TABLE OPERATOR will continue to follow. GIFTY Doyle Addendum: 11/11/16 at 0918 by DAVID MONZON SS Amended: Links added.
[2016-11-11] MEDS: HYDROcodone-APAP 5-325 mg Tablet PO PRN ×4 (10:51→22:33)
--- NOTE | 2016-11-11 10:53 | PROG NOTE ---
[address] [address] PROGRESS NOTE PATIENT: RUBEN MERINO : 1940 MR#: [id number] ADMIT: 11/09/2016 JOB ID: [id number] DATE: 11/11/2016 SUBJECTIVE: The patient is seen in followup. She has suffered a right 6th rib injury. She still complains of right flank and also right lower quadrant pain which actually is an old pain. A decision was made for her to go to a SNF. PHYSICAL EXAMINATION: Alert. Speech is slurred from a previous stroke. Temperature 36.8, brachial blood pressure 159/79, pulse 96, respiratory rate 16, O2 sat on 3 L 96%. Right flank tenderness as before. IMPRESSION: Surgically stable. PLAN: I agree with transfer to a SNF or ongoing outpatient physical therapy. There does not appear to be any obvious surgical complications from her fracture. She could be discharged any time from my perspective. I will not, nor will our team actively follow. If you need further surgical input, please reconsult us.
--- NOTE | 2016-11-11 11:11 | PCM.PNMED ---
Subjective Date of Service Nov 11, 2016 Subjective Patient denies any shortness of breath or chest pain currently. Denies any abdominal pain. I did review a physical therapy's note who recommended that she be discharged to a [facility] in order to have more physical therapy to ensure safety. Exam Vital Signs Vital Sign - Last Date Time Temp Pulse Resp B/P Pulse Ox O2 Delivery O2 Flow Rate FiO2 11/11/16 10:04 Nasal Cannula 3.00 11/11/16 07:44 96 159/79 96 11/11/16 06:17 16 11/11/16 05:20 36.8 Intake and Output 11/10/16 11/10/16 11/11/16 Cumulative From/Thru 15:00 23:00 07:00 11/09/16 13:21 - 11/11/16 06:17 Intake Total 575 ml 517 ml 2589 ml Output Total 450 ml 400 ml 1600 ml Balance 125 ml 117 ml 989 ml Intake Oral 450 ml 400 ml 1300 ml IV Total 125 ml 117 ml 1289 ml Output Urine Total 450 ml 400 ml 1600 ml # Voids 1 4 # Bowel Movements 0 Exam Constitutional: Elderly woman in no acute distress but appears anxious Head: Normocephalic atraumatic Chest: Auscultation Cor: Regular rate and rhythm S1-S2 Abdomen: Soft nontender bowel sounds present Extremities exam: No pedal edema Neuro: Alert and oriented 3, moves all extremities equally Lab and Diagnostics Laboratory Tests 72 Hours Test 11/09/16 14:59 11/09/16 17:15 11/10/16 05:40 White Blood Count 9.5th/mm3 (3.8-10.1) 7.7th/mm3 (3.8-10.1) Red Blood Count 4.15mil/mm3 (3.90-5.20) 3.91mil/mm3 (3.90-5.20) Hemoglobin 12.6g/dL (12.0-15.6) 11.7g/dL (12.0-15.6) Hematocrit 38.5% (35.0-46.0) 36.5% (35.0-46.0) Mean Corpuscular Volume 92.8fL (81-100) 93.4fL (81-100) Mean Corpuscular Hemoglobin 30.4pg (27.0-35.0) 29.9pg (27.0-35.0) Mean Corpuscular Hemoglobin Concent 32.7% (32.0-37.0) 32.1% (32.0-37.0) Red Cell Distribution Width 14.9% (12.3-15.4) 15.0% (12.3-15.4) Platelet Count 181bil/L (150-400) 168bil/L (150-400) Neutrophils (%) (Auto) 66.0% (40-74) 54.2% (40-74) Lymphocytes (%) (Auto) 23.9% (14-46) 35.2% (14-46) Monocytes (%) (Auto) 7.2% (4-12) 6.8% (4-12) Eosinophils (%) (Auto) 2.5% (0-5) 3.4% (0-5) Basophils (%) (Auto) 0.2% (0-3) 0.3% (0-3) Sodium Level 135mEq/L (134-144) 136mEq/L (134-144) Potassium Level 4.0mEq/L (3.5-5.2) 4.1mEq/L (3.5-5.2) Chloride Level 98mEq/L (97-108) 99mEq/L (97-108) Carbon Dioxide Level 24mmol/L (18-29) 25mmol/L (18-29) Blood Urea Nitrogen 26mg/dL (8-27) 22mg/dL (8-27) Creatinine 1.26mg/dL (0.57-1.00) 1.04mg/dL (0.57-1.00) Estimat Glomerular Filtration Rate 59mL/min (>59) 73mL/min (>59) Glucose Level 222mg/dL (60-99) 161mg/dL (60-99) Calcium Level 9.5mg/dL (8.5-10.1) 9.1mg/dL (8.5-10.1) Total Bilirubin 0.3mg/dL (0.0-1.2) Aspartate Amino Transf (AST/SGOT) 25U/L (0-50) Alanine Aminotransferase (ALT/SGPT) 11U/L (0-32) Alkaline Phosphatase 90U/L (25-165) Total Protein 7.0g/dL (6.4-8.4) Albumin 3.9g/dL (3.4-5.0) Urine Color Yellow (YELLOW) Urine Appearance Clear (CLEAR,HAZY) Urine pH 5.5 (5.0-8.0) Urine Specific [place] 1.015 (1.003-1.035) Urine Protein Negativemg/dL (NEG,TRACE) Urine Glucose (UA) Negativemg/dL (NEGATIVE) Urine Ketones Negativemg/dL (NEGATIVE) Urine Occult Blood Trace (NEGATIVE) Urine Nitrite Negative (NEGATIVE) Urine Bilirubin Negative (NEGATIVE) Urine Urobilinogen Normalmg/dL (NORMAL) Urine Leukocyte Esterase Trace (NEGATIVE) Urine RBC 0-2/hpf (0-2) Urine WBC 0-5/hpf (0-5) Urine Epithelial Cells None/hpf (NONE-MOD) Urine Crystals None seen (NONE SEEN) Urine Bacteria Few/hpf (NONE-FEW) Urine Hyaline Casts None/lpf (NONE) Urine Granular Casts None seen (NONE SEEN) Urine Waxy Casts None seen (NONE SEEN) Urine Red Blood Cell Casts None seen (NONE SEEN) Urine White Blood Cell Casts None seen (NONE SEEN) Urine Mucus Present (None Seen) Urine Trichomonas None seen (NONE SEEN) Urine Yeast None (NONE SEEN) Urinalysis Comment None Hemoglobin A1c 7.2% (4.8-5.6) Result Diagram: 11/10/16 0540 11/10/16 0540 X-Rays, CTs and MRIs Patient Name: RUBEN MERINO MR#: [id number] Location: [facility] [place] [place] Ordering Phys: Rishabh Cantu MD Date of Service: 11/10/16 0500 Caution: Report not yet finalized and possibly incomplete! PROCEDURE: X-RAY CHEST ONE VIEW, PORTABLE ([id number]) INDICATIONS: right rib fracture TECHNIQUE: One view of the chest was acquired. COMPARISON: [facility], CT, CT CHEST ABD PELVIS W CON, 11/09/2016, 16:22. [facility], CR, XR CHEST 1VW (PORTABLE), 08/31/2016, 5:55. FINDINGS: Surgical changes and devices: Cholecystectomy clips. Right axillary surgical clips.. Lungs and pleura: No pleural effusions or pneumothorax. Lungs are clear. Elevation of the right hemidiaphragm redemonstrated. Mediastinum: Mediastinal contours appear normal. Heart size is normal. Bones and chest wall: No change in minimally displaced acute right sixth posterior-lateral rib fracture. Lower cervical spine fixation hardware redemonstrated. IMPRESSION: 1. No change in mildly displaced right sixth posterior lateral rib fracture and no pneumothorax is seen. Dictated by: Steve Rice RRA Interpreted: Anu Amos MD on 11/10/2016 at 9: 53 Transcribed by: RODNEY on 11/10/2016 at 9:53 Assessment & Plan Active issues and reason for admission 76-year-old female, on dual antiplatlet for recent TAVR, possibly w/ grade 1 splenic laceration with R rib fractures due to ground-level fall 5 days ago. Right rib fracture/chronic pain/opioid abuse hx -- General surgeon Delvis Cantu monitoring -recommended CALCULUS TEACHER for Right rib fracutre, aware of radiographic abdominal subcutaneous finding (multiple paracentesis hx w/o etiology) and questionable splenic lac -- Today we DC'd her CALCULUS TEACHER pump and restarted Vicodin 5/325 one tab by mouth every 4 hours when necessary pain and will continue with fentanyl patch. --close monitor -Appreciate surgical input -We will proceed with physical therapy consultation today to ensure safety when discharged Physical therapy recommends SNF placement continuing physical therapy. Patient is quite adamant today about not doing that and I encourage her to ambulate with nursing today and we will see how she does and reevaluate. TAVR, stable Hg from 2 months ago, fell 5 days ago --Qday Hg, monitor --curbsided Dr. Geronimo inspector circuitry negative - recommended to keep plavix/asa, consdier holding plavix if splenic lac/Hg worsens Chronic issues known prior to admission, present on admission dCHF with mitral valve regurgitation Aortic stenosis s/p TAVR Depression GERD Gout Anxiety/Insomnia CVA - small lacunar infarcts in bilateral BG in 2006 Chronic anemia on iron replacement therapy Renal Cell Carcinoma s/p right nephrectomy Breast cancer, estrogen dependent s/p tamoxifen h/o GI bleeding mild dementia chronic wound right great toe - followed by wound center Hyperlipidemia, Hypertension renal insufficiency --resume all home meds Diet cardiac DVT prophylaxis scd Code full Disposition inpatient status Assessment and plan were discussed with patient. VTE Mechanical Devices: Intermittant Pneumatic CD Time spent 30 minutes Fabiana Schreiber MD Nov 11, 2016 11:11
[2016-11-11] MEDS: ALPRAZolam 0.5 mg Tablet PO SCH (12:11)
--- NOTE | 2016-11-11 13:44 | NUR ---
PAIN P-d/c NITROGLYCERIN NEUTRALIZER at 0900, patient has right ribs Fx x3 I-Started patient on Vicodin 5/325 PO Q4 at 1100. New Fentanyl patch applied for baseline pain. E-Patient states "I'm doing OK" appears not to be in acute pain. LABS- Cr 1.04, A1c 7.2, BG 161 and 179 NEURO- Patient appears anxious at time and states "I don't want to be in the hospital" CVS- BP 159/79, HR 79 PLUM-NC 2L GI- Heart healthy -[facility]- right tow wound outpatient PAIN- see above note IV-S/L PLAN- D/C tomorrow SNF vs home, ambulate today Addendum: 11/11/16 at 1816 by JORDAN MCKEON RN AMBULATION Patient ambulated 250 [address] hallway with walker, no shortness of breath. RA sat on return was 94%. Rib pain fairly well controlled with PO medication.
--- NOTE | 2016-11-11 14:10 | NUR ---
Social Work Note Continued Discharge Planning: D/A: SW met with the Pt to discuss PT recommendations and upcoming discharge. The Pt is now ambulating 250-300 feet, PT is recommending discharge to SNF via cabulance. This information was reviewed with the Pt and she is declining the need for SNF or HH services at this time. The Pt stated that she is planning on having her daughter come to her home and assist her with any needs. SW followed up with the Pt's via telephone to discuss the Pt's current situation. Pt's reported that she has had HH in the past as was previously agreeable and believes that she may be again with additional education. SW to follow up in the morning with the Pt to explore HH again. P: Pt to be discharged home when medically stable with family to provide POV transportation. PT is recommending discharge to SNF via cabulance, Pt declining the need for SNF or HH services at this time. The Pt's feels that the Pt may be agreeable to HH due to previous experience. SW to follow up in the morning with the Pt to explore HH again. Jalyn Diaz MSW Financial Reporting Manager GIFTY Doyle
--- NOTE | 2016-11-11 20:30 | NUR ---
[place] Refusal Pt had originally requested norco for pain, it was removed from [employer] and scanned for patient. Immediately prior to administration the patient changed their mind stating "I think I'm going to actually wait a bit". [place] returned to [employer].
[2016-11-11] MEDS: Dextrose 5% 500 ML IV SCH (23:34)
[2016-11-12 00:52] VITALS: BP 167/79; PULSE 80; RESP 18; O2SAT 97
[2016-11-12] MEDS: HYDROcodone-APAP 5-325 mg Tablet PO PRN ×3 (04:18→14:26)
[2016-11-12 04:43] VITALS: BP 154/87; PULSE 83; O2SAT 95
--- NOTE | 2016-11-12 05:59 | NUR ---
O2 / Mentation / Discharge Ready Pt has tolerated RA all night w/o any periods of hypoxia, sats in the mid to upper 90s consistently. Pt has also ambulated w/o any incidence of SOB. Pt continues to be pleasantly confused but A&Ox2/3, aware of self and situation, not location consistently. Pt would like to discharge, given her improvement she is very hopeful, and I agree that she has very much improved.
[2016-11-12] MEDS: Insulin LISPRO 300 Unit/3 mL Inj SUBQ SCH ×2 (08:00→12:00)
[2016-11-12] MEDS: ALPRAZolam 0.5 mg Tablet PO SCH (08:22)
[2016-11-12] MEDS: MeTOProlol XL 25 mg ER24 Tablet PO SCH (08:23)
[2016-11-12] MEDS: Pantoprazole 20 mg ER24 Tablet PO SCH (08:23)
--- NOTE | 2016-11-12 11:13 | PCM.DIMED ---
Discharge Instructions Date of Service Nov 12, 2016 Dates of Hospitalization Nov 09, 2016 at 19:46 Discharge Diagnosis Discharge Diagnosis GLF rib fractures and concern for possible occult splenic laceration Diet No restrictions Activity Other (needs care with ambulation no bending or lifting) Fabiana Schreiber MD Nov 12, 2016 11:13
--- NOTE | 2016-11-12 11:23 | PCM.DC.MED ---
Discharge Summary Date of Service Nov 12, 2016 Dates of Hospitalization Date of Hospital Admission Nov 09, 2016 at 19:46 Date of Discharge: Nov 12, 2016 Providers: Admitting Physician: Kyle Lutz MD Primary Care Physician: Krish Armstrong MD Attending Physician: Kyle Lutz MD Diagnosis at Time of Discharge Diagnosis at Time of Discharge GLF rib fractures and concern for possible occult splenic laceration Consultations Gen. surgery Procedures XRay, CTs & MRIs Patient Name: RUBEN MERNIO MR#: [id number] Location: [facility] [place] Ordering Phys: Rishabh Cantu MD Date of Service: 11/10/16 0500 Caution: Report not yet finalized and possibly incomplete! PROCEDURE: X-RAY CHEST ONE VIEW, PORTABLE ([id number]) INDICATIONS: right rib fracture TECHNIQUE: One view of the chest was acquired. COMPARISON: [facility], CT, CT CHEST ABD PELVIS W CON, 11/09/2016, 16:22. [facility], CR, XR CHEST 1VW (PORTABLE), 08/31/2016, 5:55. FINDINGS: Surgical changes and devices: Cholecystectomy clips. Right axillary surgical clips.. Lungs and pleura: No pleural effusions or pneumothorax. Lungs are clear. Elevation of the right hemidiaphragm redemonstrated. Mediastinum: Mediastinal contours appear normal. Heart size is normal. Bones and chest wall: No change in minimally displaced acute right sixth posterior-lateral rib fracture. Lower cervical spine fixation hardware redemonstrated. IMPRESSION: 1. No change in mildly displaced right sixth posterior lateral rib fracture and no pneumothorax is seen. Dictated by: Steve Rice [facility] Interpreted: Anu Amos MD on 11/10/2016 at 9: 53 Transcribed by: RODNEY on 11/10/2016 at 9:53 PROCEDURE: CT CHEST, ABDOMEN AND PELVIS WITH CONTRAST ([id number]) INDICATIONS: fall, right chest and abd pain TECHNIQUE: After the administration of intravenous contrast, 5 mm thick sections acquired from the lung apices to the symphysis. 5 mm thick coronal and sagittal reformats were acquired. Additional 7 mm thick coronal maximum intensity projection (MIP) reformats acquired through the lungs. Optional 10-minute delayed imaging may be performed from the kidneys to the bladder. For radiation dose reduction, the following was used: automated exposure control, adjustment of mA and/or kV according to patient size. COMPARISON: None. FINDINGS: Image quality: Excellent. CHEST: Lungs: No pulmonary contusions or lacerations. No acute airspace opacities. No pneumothorax or hemothorax. Central and peripheral airways appear patent and normal in caliber. Mediastinum: No mediastinal hematomas. Heart size is normal. Prosthetic aortic valve noted. Dense atherosclerotic ossifications noted in the aorta, great vessels and the coronary vasculature. No pericardial effusion. Thoracic aorta and pulmonary arteries demonstrate normal size and enhancement. No mediastinal or hilar adenopathy. Esophagus is normal in caliber. No hiatal hernia. Chest wall: Postsurgical changes compatible with prior right mastectomy and right axillary node dissection noted. Chronic appearing left posterior seventh- 11th rib fractures are noted. Acute appearing right lateral sixth rib fracture is noted. No subcutaneous emphysema. No axillary or supraclavicular adenopathy. Thyroid gland contains a 0.7 cm in diameter hypoattenuating nodule in the left lobe.. ABDOMEN: Solid organs: Liver and spleen are normal in size. Small, wedge-shaped hypoattenuating focus is noted in the posterior lateral periphery of the spleen (series 8, image [id number] which may represent a small, approximately 0.7 cm subcapsular laceration versus small subacute infarct in. No splenic subcapsular hematoma is identified. Gallbladder surgically absent. Biliary system is non- dilated. Pancreas enhances normally, without transection. Fatty atrophy of the pancreas is noted. No adrenal hematomas. Both kidneys enhance normally, without hydronephrosis or lacerations. Right kidney is absent; please correlate with surgical history. Left renal cysts are noted. Peritoneum and bowel: No free fluid or air. Unenhanced bowel loops demonstrate normal wall thickness and caliber. Nodes and vessels: No retroperitoneal or mesenteric adenopathy. Aorta and inferior vena cava are normal in size and enhancement. Scattered atherosclerotic calcifications are noted in the abdominal pelvic vasculature. Miscellaneous: No ventral hernias. PELVIS: Genitourinary: Bladder wall thickness is normal. Miscellaneous: No inguinal hernias or adenopathy. There is a 4.2 x 12.5 x 15.7 cm fluid collection in the anterior subcutaneous fat of the pelvic pannus. The subcutaneous fluid collection has an enhancing wall may represent posttraumatic seroma or abscess. Please correlate with clinical and laboratory data. Multiple injection granulomas noted in the liver the subcutaneous fat of the buttocks bilaterally. Bones: Pelvic ring and hip joints appear intact. No vertebral compression fractures. Degenerative disc disease and facet arthropathy are noted in the spine. Convex left curvature of the lumbar junction is noted. Postsurgical changes compatible with lower lumbar spine laminectomy is noted. IMPRESSION: 1. Acute right seventh rib fracture. Chronic appearing right 7th - 11th rib fractures. 2. Small, approximately 0.7 cm in maximum diameter, wedge-shaped, hypoattenuating focus in the posterior-lateral subcapsular spleen may represent a small splenic laceration (grade 1) or subacute infarct. No splenic subcapsular hematoma identified. 3. Large low-density fluid collection with peripheral enhancement in subcutaneous fat of pelvic pannus most compatible with posterior medics seroma or abscess. Please correlate with clinical and laboratory data. 3. Atherosclerosis. 4. No free intraperitoneal fluid or air. 5. Postsurgical changes. Dictated by: Meg Amaro MD, PhD on 11/09/2016 at 17:06 Patient Name: RUBEN MERINO MR#: [id number] Location: [facility] [place] Ordering Phys: Carl Reid DO Date of Service: 11/09/16 1440 PROCEDURE: CT CERVICAL SPINE WITHOUT CONTRAST ([id number]) INDICATIONS: fall, right chest and abd pain TECHNIQUE: Noncontrast 3 mm thick sections acquired from the skull base to the T4 level. Sagittal and coronal reformats were then constructed. For radiation dose reduction, the following was used: automated exposure control, adjustment of mA and/or kV according to patient size. COMPARISON: [facility], CT, C-SPINE W/O CONTRAST, 04/25/2015, 16:18. FINDINGS: Image quality: Excellent. Bones: Postsurgical changes compatible with C4-C6 ACDF noted. Anterior wedging of the C7 vertebral body is stable compared prior CT scan. No acute fractures or dislocations. Visualized superior ribs are intact. Multilevel degenerative disc disease and facet arthropathy are noted. Soft tissues: Prevertebral soft tissues are normal in thickness. No paravertebral hematomas. No apical pneumothoraces. 7 mm hypoattenuating nodule noted in the left lobe of the thyroid gland. Atherosclerotic calcifications noted. IMPRESSION: 1. No acute fracture. No acute osseous lesion. If symptoms and/or clinical suspicion for pathology persists, evaluation with MRI may be helpful for further assessment. 2. Status post C4-C6 ACDF. 3. Anterior wedging of the C7 vertebral body stable compared to prior examination. Dictated by: Meg Amaro MD, PhD on 11/09/2016 at 16:51 Approved by: Meg Amaro MD, PhD on 11/09/2016 at 16:51 Patient Name: RUBEN MERINO MR#: [id number] Location: [facility] Ordering Phys: Carl Reid Date of Service: 11/09/16 1440 PROCEDURE: CT BRAIN WITHOUT CONTRAST ([id number]) INDICATIONS: fall, right chest and abd pain TECHNIQUE: Noncontrast 4.5 mm thick angled axial sections acquired from the foramen magnum to the vertex, with coronal reformats. COMPARISON: [facility], CT, BRAIN W/O CONTRAST, 07/27/2007, 15:50. FINDINGS: Image quality: Excellent. CSF spaces: Basal cisterns are patent. No extra-axial fluid collections. The ventricles are symmetric in size and shape. Brain: No intracranial bleeds or masses. There is cerebral volume loss for age , with resultant ventricular and sulcal prominence. There are periventricular and deep white matter chronic small vessel ischemic changes. There is intracranial internal carotid artery atherosclerosis. Skull and face: Calvarium and visualized facial bones appear intact, without suspicious lesions. Sinuses: Visualized sinuses and mastoids are clear. IMPRESSION: No acute intracranial process. Dictated by: Drew Brown M.D. on 11/09/2016 at 16:42 Approved by: Drew Brown M.D. on 11/09/2016 at 16:42 Hospital Course Active issues and reason for admission 76-year-old female, on dual antiplatlet for recent TAVR, possibly w/ grade 1 splenic laceration with R rib fractures due to ground-level fall 5 days ago. Right rib fracture/chronic pain/opioid abuse hx -- General surgeon Delvis perez -recommended GAS DESULFURIZER for Right rib fracutre, aware of radiographic abdominal subcutaneous finding (multiple paracentesis hx w/o etiology) and questionable splenic lac -- Today we DC'd her GAS DESULFURIZER pump and restarted Vicodin 5/325 one tab by mouth every 4 hours when necessary pain and will continue with fentanyl patch. --close monitor -Appreciate surgical input -We will proceed with physical therapy consultation today to ensure safety when discharged Physical therapy recommends SNF placement continuing physical therapy. Patient is quite adamant today about not doing that and I encourage her to ambulate with nursing today and we will see how she does and reevaluate. Patient did stay an additional day and did progress with these of ambulation and was felt that she was able to go home with good gait stability. technical services representative did ensure that she has good social support at home and lives with . TAVR, stable Hg from 2 months ago, fell 5 days ago --Qday Hg, monitor --curbsided Dr. Geronimo early childhood education coordinator - recommended to keep plavix/asa, consdier holding plavix if splenic lac/Hg worsens Chronic issues known prior to admission, present on admission dCHF with mitral valve regurgitation Aortic stenosis s/p TAVR Depression GERD Gout Anxiety/Insomnia CVA - small lacunar infarcts in bilateral BG in 2006 Chronic anemia on iron replacement therapy Renal Cell Carcinoma s/p right nephrectomy Breast cancer, estrogen dependent s/p tamoxifen h/o GI bleeding mild dementia chronic wound right great toe - followed by wound center Hyperlipidemia, Hypertension renal insufficiency --resume all home meds Diet cardiac DVT prophylaxis scd Code full Disposition inpatient status Assessment and plan were discussed with patient. Exam Vital Signs (Last) Date Time Temp Pulse Resp B/P Pulse Ox O2 Delivery O2 Flow Rate FiO2 11/12/16 10:19 Supplement Oxygen 11/12/16 04:43 36.5 83 154/87 95 3.00 11/12/16 00:52 18 Exam Constitutional: Elderly woman who is in no acute distress Head: Normocephalic atraumatic Eyes: PERRLA DC EOMI Chest: Clear to auscultation Cor: Regular rate and rhythm S1-S2, abdomen: Soft nontender bowel sounds present. She does have some tenderness palpation over the right lower chest wall however Extremities: No pedal edema noted Skin: No rashes Neuro alert and oriented 3 motor strength is intact bilaterally Test 11/09/16 14:59 11/09/16 17:15 11/10/16 05:40 Total Bilirubin 0.3mg/dL (0.0-1.2) Aspartate Amino Transf (AST/SGOT) 25U/L (0-50) Alanine Aminotransferase (ALT/SGPT) 11U/L (0-32) Alkaline Phosphatase 90U/L (25-165) Total Protein 7.0g/dL (6.4-8.4) Albumin 3.9g/dL (3.4-5.0) Urine Color Yellow (YELLOW) Urine Appearance Clear (CLEAR,HAZY) Urine pH 5.5 (5.0-8.0) Urine Specific [place] 1.015 (1.003-1.035) Urine Protein Negativemg/dL (NEG,TRACE) Urine Glucose (UA) Negativemg/dL (NEGATIVE) Urine Ketones Negativemg/dL (NEGATIVE) Urine Occult Blood Trace (NEGATIVE) Urine Nitrite Negative (NEGATIVE) Urine Bilirubin Negative (NEGATIVE) Urine Urobilinogen Normalmg/dL (NORMAL) Urine Leukocyte Esterase Trace (NEGATIVE) Urine RBC 0-2/hpf (0-2) Urine WBC 0-5/hpf (0-5) Urine Epithelial Cells None/hpf (NONE-MOD) Urine Crystals None seen (NONE SEEN) Urine Bacteria Few/hpf (NONE-FEW) Urine Hyaline Casts None/lpf (NONE) Urine Granular Casts None seen (NONE SEEN) Urine Waxy Casts None seen (NONE SEEN) Urine Red Blood Cell Casts None seen (NONE SEEN) Urine White Blood Cell Casts None seen (NONE SEEN) Urine Mucus Present (None Seen) Urine Trichomonas None seen (NONE SEEN) Urine Yeast None (NONE SEEN) Urinalysis Comment None White Blood Count 7.7th/mm3 (3.8-10.1) Red Blood Count 3.91mil/mm3 (3.90-5.20) Hemoglobin 11.7g/dL (12.0-15.6) Hematocrit 36.5% (35.0-46.0) Mean Corpuscular Volume 93.4fL (81-100) Mean Corpuscular Hemoglobin 29.9pg (27.0-35.0) Mean Corpuscular Hemoglobin Concent 32.1% (32.0-37.0) Red Cell Distribution Width 15.0% (12.3-15.4) Platelet Count 168bil/L (150-400) Neutrophils (%) (Auto) 54.2% (40-74) Lymphocytes (%) (Auto) 35.2% (14-46) Monocytes (%) (Auto) 6.8% (4-12) Eosinophils (%) (Auto) 3.4% (0-5) Basophils (%) (Auto) 0.3% (0-3) Sodium Level 136mEq/L (134-144) Potassium Level 4.1mEq/L (3.5-5.2) Chloride Level 99mEq/L (97-108) Carbon Dioxide Level 25mmol/L (18-29) Blood Urea Nitrogen 22mg/dL (8-27) Creatinine 1.04mg/dL (0.57-1.00) Estimat Glomerular Filtration Rate 73mL/min (>59) Glucose Level 161mg/dL (60-99) Hemoglobin A1c 7.2% (4.8-5.6) Calcium Level 9.1mg/dL (8.5-10.1) Discharge Medications Discharge Medications Allopurinol (Allopurinol) 300 Mg Tablet 300 MG PO HS (Reported) Alprazolam (Alprazolam) 0.5 Mg Tablet 0.5 MG PO DAILY (Reported) Clopidogrel Bisulfate (Plavix) 75 Mg Tablet 75 MG PO DAILY (Reported) Desvenlafaxine Succinate ER (Pristiq ER) 100 Mg Tab.er.24h 50 MG PO DAILY ( Reported) TAKE 50MG DAILY Fentanyl 50 mcg/hr Patch (Fentanyl 50 mcg/hr Patch) 1 Each Patch.td72 1 EACH TOP Q3D (Reported) Furosemide (Furosemide) 20 Mg Tab 20 MG PO DAILY Prescribed by: HILLARY MCDANIELS MD Hydrocodone-Acetaminophen 5-325 mg (Hydrocodone-Acetaminophen 5-325 mg) 1 Each Tablet 2 EACH PO BID Prescribed by: LORRI HO DO Metoprolol Succinate ER (Metoprolol Succinate ER) 25 Mg Tab.er.24h 25 MG PO BID (Reported) Nortriptyline (Nortriptyline) 50 Mg Capsule 50 MG PO HS (Reported) Pantoprazole DR (Pantoprazole DR) 20 Mg Tablet.dr 20 MG PO DAILY (Reported) Pravastatin (Pravachol) 40 Mg Tab 40 MG PO HS (Reported) Tizanidine (Tizanidine) 2 Mg Tablet 2 MG PO Q12H (Reported) Followup Plan Disposition: To home Discharge Diet: No restrictions Discharge Activity: Other (needs care with ambulation no bending or lifting) Follow-up with PCP in: 1 week (patient is to follow-up with her primary care provider in one week sooner if problems) Time spent 60 minutes Fabiana Schreiber MD Nov 12, 2016 11:23
[2016-11-12 12:30] VITALS: BP 174/87; PULSE 89; RESP 14; O2SAT 96
--- NOTE | 2016-11-12 14:58 | NUR ---
Discharge Pt discharged from unit, accompanied by . Pt aware of current medications (no new meds). Educated on signs to watch for and if/when she needs to go to the ER. Pt's belongings taken with her. Pt taken off floor in wheelchair.
== END 2016-11-12 14:53 | disposition home or self-care (01) | DRG 184 ==
LOC: SED 13:06 → OSC 19:46 → OBSVTOIN 19:46 → MOC 11-10 13:44
PROVIDERS: ADMIT Urology; ATTEND Urology
DX: S22.41XA Multiple fractures of ribs, right side, initial encounter for closed fracture (principal); S36.030A Superficial (capsular) laceration of spleen, initial encounter; I50.32 Chronic diastolic (congestive) heart failure; W18.39XA Other fall on same level, initial encounter; M19.011 Primary osteoarthritis, right shoulder; I10 Essential (primary) hypertension; E78.5 Hyperlipidemia, unspecified; M10.9 Gout, unspecified; Z86.73 Personal history of transient ischemic attack (TIA), and cerebral infarction without residual deficits; K21.9 Gastro-esophageal reflux disease without esophagitis; G89.29 Other chronic pain; D50.9 Iron deficiency anemia, unspecified; Y92.019 Unspecified place in single-family (private) house as the place of occurrence of the external cause; F41.9 Anxiety disorder, unspecified; F03.90 Unspecified dementia, unspecified severity, without behavioral disturbance, psychotic disturbance, mood disturbance, and anxiety; R73.9 Hyperglycemia, unspecified

== ENCOUNTER 2017-01-13 18:47 | Emergency (ER) | payer MEDICARE, OTHER ==
[~2017-01-13] VITALS: Ht 162.6 cm; Wt 86.4 kg
[2017-01-13 18:51] VITALS: BP 189/100; PULSE 86; RESP 18; O2SAT 98
[2017-01-13 19:18] LABS: BASOPHILS % (AUTO) 0.1 % (0-3); EOSINOPHILS % (AUTO) 2.8 % (0-5); MONOCYTES % (AUTO) 8.5 % (4-12); Mean Corpuscular Hemoglobin 30.3 pg (27.0-35.0); Mean Corpuscular Volume 93.5 fL (81-100); NEUTROPHILS % (AUTO) 56.8 % (40-74); Platelet Count 169 bil/L (150-400)
[2017-01-13 19:47] LABS: TROPONIN T < 0.010 ug/L (0.0-0.011)
[2017-01-13 19:50] VITALS: BP 161/77; PULSE 90; RESP 17; O2SAT 96
[2017-01-13 19:51] LABS: Magnesium 2.1 mg/dL (1.6-2.6)
--- NOTE | 2017-01-13 19:52 | DRSVH ---
PROCEDURE: X-RAY CHEST ONE VIEW, PORTABLE ([id number]) INDICATIONS: CHEST PAIN TECHNIQUE: One view of the chest was acquired. COMPARISON: [facility], CR, XR CHEST 1VW (PORTABLE), 11/10/2016, 5:01. FINDINGS: Surgical changes and devices: Surgical clips projecting in the right axilla Lungs and pleura: No pleural effusions or pneumothorax. Lungs are clear. Elevation of the right he midiaphragm Mediastinum: Mediastinal contours appear normal. Heart size is normal. Bones and chest wall: No suspicious bony lesions. Overlying soft tissues appear unremarkable. IMPRESSION: No acute disease. Dictated by: Drew Brown M.D. on 01/13/2017 at 19:51 Approved by: Drew Brown M.D. on 01/13/2017 at 19:51
--- NOTE | 2017-01-13 21:07 | ED.REPORT ---
HPI-Chest Pain 40 and Over Date of Service Jan 13, 2017 ED Provider: Arias Pineda MD A 76 year old female with history of congestive heart failure, aortic stenosis, hypertension, hyperlipidemia, GERD, previous CVA, breast cancer s/p lumpectomy and axillary lymph node removal, and renal cell carcinoma s/p right nephrectomy presents to the emergency department who presents to the ED due to chest pain 8 hrs ago for less then a minute. She had a "cramping feeling" on both sides of her chest which radiated into her left wrist. She reports sever pain in her buttock muscles. The pain begins in the waist and spreads down into both buttocks onset two weeks ago. This pain is so severe she cannot walk or sit without pain and has to use her scooter for mobility. She also states that she came in today because she was worried she had a stroke. This afternoon, she was reading and her head started "buzzing," which resolved immediately. Pt c/o associated headache and bladder incontinence over the past [address] Krish Armstrong is her PCP. Pt is a very poor historian. Nursing Notes Stated Complaint: HEART COMPLICATION Chief Complaint: General Complaint Nursing Notes Reviewed: Yes Allergies: Coded Allergies: venlafaxine (Verified Allergy, Severe, rash, 01/13/17) Pt reports bruising all over body, increased swelling hydroxyzine (Verified Allergy, Unknown, agitation, 01/13/17) Scheduled Allopurinol (Allopurinol) 300 Mg Tablet 300 MG PO HS Alprazolam (Alprazolam) 0.5 Mg Tablet 0.5 MG PO DAILY Clopidogrel Bisulfate (Plavix) 75 Mg Tablet 75 MG PO DAILY Desvenlafaxine Succinate ER (Pristiq ER) 100 Mg Tab.er.24h 50 MG PO DAILY TAKE 50MG DAILY Fentanyl 50 mcg/hr Patch (Fentanyl 50 mcg/hr Patch) 1 Each Patch.td72 1 EACH TOP Q3D Furosemide (Furosemide) 20 Mg Tab 20 MG PO DAILY Hydrocodone-Acetaminophen 5-325 mg (Hydrocodone-Acetaminophen 5-325 mg) 1 Each Tablet 2 EACH PO BID Metoprolol Succinate ER (Metoprolol Succinate ER) 25 Mg Tab.er.24h 25 MG PO BID Nortriptyline (Nortriptyline) 50 Mg Capsule 50 MG PO HS Pantoprazole DR (Pantoprazole DR) 20 Mg Tablet.dr 20 MG PO DAILY Pravastatin (Pravachol) 40 Mg Tab 40 MG PO HS Tizanidine (Tizanidine) 2 Mg Tablet 2 MG PO Q12H General Time Seen by MD: 21:04 Chief Complaint Chest pain Hx Obtained From: Patient Arrived By: Walk-in Sudden in Onset?: Yes Onset Occurred: 9 - 12 hours ago Symptom Duration: Since onset Location: : Chest left: Chest right Quality: Cramping, Painful Radiation: : Arm left Severity: Current: Mild Recent Healthcare: Recent doctor visit, Previous surgery Similar Sx Previous: Yes Past Medical History Past Medical History Unspecified CHF with mitral valve regurgitation Aortic stenosis Depression GERD Gout Anxiety/Insomnia CVA - small lacunar infarcts in bilateral BG in 2006 Chronic anemia on iron replacement therapy Renal Cell Carcinoma s/p right nephrectomy 4 years ago Breast cancer, 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 - followed by wound center Reports: Hyperlipidemia, Hypertension Reports: Renal insufficiency Past Surgical History Lumpectomy right breast Left breast mastectomy Nephrectomy of right kidney with axillary lymph node removal Left clavicular fracture repair Cholecystectomy Hysterectomy in her 30's Cataracts bilaterally Low back surgery x 2 Appendectomy Tonsillectomy Aortic valve replacement at [facility] Ovary removal Family History Father of [place] at 50, was a chronic smoker and alcoholic Mother of [place] in her late 60's, was a chronic smoker and alcoholic Smoking History Never Smoker Social History MOved to area from [place] on November 2014. Alcohol Use: Denies alcohol use Drug Use: Denies drug use Other Social History: Good social support, , Local resident Occupation lives with Ambulatory Status Independent Review of Systems Cardiovascular: Reports: Chest pain Musculoskeletal: Reports: Back pain (radiating into both buttocks), Extremity pain Neurologic: Reports: Headache Complete sys rev & neg: except as marked. Female: Reports: Incontinence Physical Exam Physical Exam Notes: Initial Vital Signs Vital Signs (First) Date Time Temp Pulse Resp B/P Pulse Ox O2 Delivery O2 Flow Rate FiO2 01/13/17 18:51 35.8 86 18 189/100 98 Room Air Initial VS: Reviewed, Vital signs abnormal Head / Eyes: Atraumatic, Normocephalic, PERRL ENT: Mucous membranes moist Skin: Warm, Dry General/Constitutional: Awake, Alert, Well appearing, Cooperative Respiratory / Chest: Atraumatic, Breath sounds NL, Breath sounds = bilat, No respiratory distress, No rales, No rhonchi, No wheezing, No retractions Cardiovascular: Heart rate NL, Regular rhythm, Heart sounds NL, No gallop, No murmurs, No rubs Abdomen: Atraumatic, Soft, Non-tender Neck: Atraumatic, Supple, No JVD Lower Extremity / Pelvis / MS: No edema bilateral sciatic notch tenderness deep tendon reflex normal sensation intact no weakness positive straight leg raising 35 degrees on right and 20 degrees on left Interpretation & Diagnostics Lab Results Interpretation Result Diagram: 01/13/17 1904 01/13/17 1904 Test 01/13/17 19:04 01/13/17 21:10 01/13/17 21:50 White Blood Count 7.6th/mm3 (3.8-10.1) Red Blood Count 4.16mil/mm3 (3.90-5.20) Hemoglobin 12.6g/dL (12.0-15.6) Hematocrit 38.9% (35.0-46.0) Mean Corpuscular Volume 93.5fL (81-100) Mean Corpuscular Hemoglobin 30.3pg (27.0-35.0) Mean Corpuscular Hemoglobin Concent 32.4% (32.0-37.0) Red Cell Distribution Width 14.7% (12.3-15.4) Platelet Count 169bil/L (150-400) Neutrophils (%) (Auto) 56.8% (40-74) Lymphocytes (%) (Auto) 31.5% (14-46) Monocytes (%) (Auto) 8.5% (4-12) Eosinophils (%) (Auto) 2.8% (0-5) Basophils (%) (Auto) 0.1% (0-3) Sodium Level 134mEq/L (134-144) Potassium Level 4.7mEq/L (3.5-5.2) Chloride Level 95mEq/L (97-108) Carbon Dioxide Level 21mmol/L (18-29) Blood Urea Nitrogen 28mg/dL (8-27) Creatinine 0.84mg/dL (0.57-1.00) Estimat Glomerular Filtration Rate 94mL/min (>59) Glucose Level 130mg/dL (60-99) Calcium Level 9.8mg/dL (8.5-10.1) Magnesium Level 2.1mg/dL (1.6-2.6) Total Bilirubin 0.3mg/dL (0.0-1.2) Aspartate Amino Transf (AST/SGOT) 29U/L (0-50) Alanine Aminotransferase (ALT/SGPT) 12U/L (0-32) Alkaline Phosphatase 183U/L (25-165) Total Protein 7.4g/dL (6.4-8.4) Albumin 4.3g/dL (3.4-5.0) Hold Araujo Top Tube Received (Received) Hold Urine Received (Received) Troponin T 0.010ug/L (0.0-0.011) Lab values outside NL range: no clinical significance. Lab Results Interpretation: Troponin negative 2. ECG Interpretation ECG Interpretation: LVH Time: 19:06 Interpreted by: ED physician Normal ECG Interpretation: Normal rate (82), Normal sinus rhythm Time: 22:15 Interpreted by: ED physician Normal ECG Interpretation: Normal rate (80), Normal sinus rhythm, No change from prior ECGs X-Ray Chest Interpretation Chest Xray Interpretation: IMPRESSION: No acute disease. Dictated by: Drew Brown M.D. on 01/13/2017 at 19:51 Approved by: Drew Brown M.D. on 01/13/2017 at 19:51 View: Portable Interpretation / Wet Read by: Interpret - Radiologist Re-Eval/Medical Decision Med Decision/Clinical Course 76-year-old female who is quite anxious about her cardiac health. She had some fleeting chest pain earlier in the afternoon which has not recurred. ER workup to include troponin 2 and EKG 2 is negative. She also was concerned about ongoing pain in her buttocks. She has had a previous MRI for this which showed multiple level degenerative disc disease with the nerve root impingement. She is scheduled to see Dr. Che for follow-up and possible epidural steroid injection. She is on chronic fentanyl already so no additional pain medication was given. She is discharged in a much improved condition. Counseled Regarding: Diagnosis, Lab results, Need for follow-up, When/why to return to ED Discharge & Departure Primary Impression: Lumbar degenerative disc disease Additional Impression: Chest pain with low risk of acute coronary syndrome Disposition: Home Discharge Condition All VS Reviewed: Yes Condition: Stable Patient Instructions: Sciatica (ED) Additional Instructions: Emergency Department evaluation included interview, examination, chest x-ray, and EKG. Both of your EKGs and cardiac enzyme lab tests are normal and do not show any sign of damage to your heart. The pain in your buttocks is due to nerve damage in your spine, seen on the MRI from earlier this month. Talk to Dr. Ralph about epidural steroid injections. Continue your chronic pain management. Follow up with primary care physician as needed. Return to the Emergency Department for any new or worsening symptoms. Referrals: Krish Armstrong MD (PCP) Scribe Attestation Portion of this note were transcribed by Mary Richey. I, Dr. Pineda, personally performed the history, physical exam, and medical decision-making: I reviewed and confirmed the accuracy for the information in the transcribed note. Signed by: anthony Grace, 01/13/17 2300 copies to: Krish Armstrong MD, Howard L MD Jan 13, 2017 21:07 Mary Richey Jan 13, 2017 21:14
[2017-01-13] MEDS ORDERED: HYDROcodone-APAP 5-325 mg Tablet PO ONE (21:30)
[2017-01-13 22:10] VITALS: BP 155/78; PULSE 92; RESP 18; O2SAT 98
[2017-01-13 23:46] VITALS: BP 150/80; PULSE 90; RESP 17; O2SAT 99
== END 2017-01-13 23:47 | disposition home or self-care (01) ==
LOC: SED 18:47
DX: M51.36 Other intervertebral disc degeneration, lumbar region (principal); R07.9 Chest pain, unspecified; I50.9 Heart failure, unspecified; I10 Essential (primary) hypertension; E78.5 Hyperlipidemia, unspecified; K21.9 Gastro-esophageal reflux disease without esophagitis; Z86.73 Personal history of transient ischemic attack (TIA), and cerebral infarction without residual deficits; Z88.8 Allergy status to other drugs, medicaments and biological substances

== ENCOUNTER 2017-06-29 11:04 | Observation (INO) | payer MEDICARE, OTHER ==
[~2017-06-29] VITALS: Ht 162.6 cm; Wt 83.0 kg
[2017-06-29] MEDS: Pantoprazole 40 mg ER24 Tablet PO SCH (07:30)
[~2017-06-29 11:04] MED LIST changes: +METO-386 PO; -METO25TA99 PO
[2017-06-29 11:06] VITALS: BP 120/88; PULSE 77; RESP 17; O2SAT 98
[2017-06-29 11:28] LABS: BASOPHILS % (AUTO) 0.3 % (0-3); EOSINOPHILS % (AUTO) 3.2 % (0-5); MONOCYTES % (AUTO) 7.6 % (4-12); Mean Corpuscular Hemoglobin 30.9 pg (27.0-35.0); NEUTROPHILS % (AUTO) 55.8 % (40-74); Platelet Count 155 bil/L (150-400)
[2017-06-29 11:51] LABS: TROPONIN T 0.01 ug/L (0.0-0.011)
[2017-06-29 11:57] LABS: INR 1.01 ratio
--- NOTE | 2017-06-29 12:01 | DRSVH ---
PROCEDURE: X-RAY CHEST ONE VIEW, PORTABLE ([id number]) INDICATIONS: SHORT OF BREATH TECHNIQUE: One view of the chest was acquired. COMPARISON: [facility], CR, XR CHEST 1VW (PORTABLE), 08/31/2016, 5:55. FINDINGS: Surgical changes and devices: Postoperative changes of the lower cervical spine and right axilla are noted. The cardiac stent/valve replacement is noted. Lungs and pleura: Aeration of the lungs is similar to the prior study with elevation of the right yesenia phragm. No lobar consolidation, effusion, or pneumothorax is evident. Mediastinum: Mediastinal contours appear normal. Heart size is normal. Bones and chest wall: No suspicious bony lesions. Overlying soft tissues appear unremarkable. IMPRESSION: Stable chest. No acute cardiopulmonary process is evident. Dictated by: Froy Alexander M.D. on 06/29/2017 at 10:59 Approved by: Froy Alexander M.D. on 06/29/2017 at 11:00
[2017-06-29 12:02] LABS: Magnesium 1.5 mg/dL (1.6-2.6)
--- NOTE | 2017-06-29 12:02 | DRSVH ---
PROCEDURE: CT BRAIN WITHOUT CONTRAST ([id number]) INDICATIONS: GLF ON BLOOD THINNERS hit back of head bleeding TECHNIQUE: Noncontrast 4.5 mm thick angled axial sections acquired from the foramen magnum to the vertex, with c oronal reformats. COMPARISON: [facility], CT, CT BRAIN WO CON, 11/09/2016, 16:22. FINDINGS: Image quality: Excellent. CSF spaces: Basal cisterns are patent. No extra-axial fluid collections. The ventricles are symmet opal in size and shape. There is mild cerebral volume loss, with resultant ventricular and sulcal pro minence. Brain: No intracranial hemorrhage, mass, or mass effect. There are subcortical, periventricular and deep white matter hypodensities consistent with mild chronic small vessel ischemic changes. There i s intracranial internal carotid artery atherosclerosis. Skull and face: There is soft tissue swelling in the right posterior parietal and occipital scalp re gion with a scalp hematoma. Calvarium and visualized facial bones appear intact, without suspicious lesions. Sinuses: Visualized sinuses and mastoids are clear. IMPRESSION: 1. No acute intracranial abnormality. 2. Right posterior parietal and occipital scalp hematoma without evidence of fracture. 3. Mild chronic white matter small vessel ischemic changes and cerebral volume loss. Dictated by: Evangelista Brooks M.D. on 06/29/2017 at 11:59 Approved by: Evangelista Brooks M.D. on 06/29/2017 at 12:01
--- NOTE | 2017-06-29 12:10 | ED.REPORT ---
HPI-General Illness Date of Service Jun 29, 2017 ED Provider: Eliu Gupta MD Patient is a 77 year old female with a hx of CHF, Aortic stenosis, HTN, hyperlipidemia, and DVT on Plavix who presents to the ED via EMS s/p a ground level fall at 1100 this morning. Patient reports feeling lightheaded prior to falling and she did hit the back of her head on cement. Associated symptoms include nausea. She denies numbness, LOC, sore throat, fevers, dysuria, vision changes, headache, chest pain, SOB, palpitations. rash, itching, focal weakness , back pain, neck pain, or any other symptoms. Nursing Notes Stated Complaint: GROUND LEVEL FALL Chief Complaint: General Complaint Nursing Notes Reviewed: Yes Allergies: Coded Allergies: venlafaxine (Verified Allergy, Severe, rash, 01/13/17) Pt reports bruising all over body, increased swelling hydroxyzine (Verified Allergy, Unknown, agitation, 01/13/17) Scheduled Allopurinol (Allopurinol) 300 Mg Tablet 300 MG PO HS Alprazolam (Alprazolam) 0.5 Mg Tablet 0.5 MG PO HS Aspirin Chew (Aspirin Chew) 81 Mg Chew 81 MG PO QAM Clopidogrel Bisulfate (Plavix) 75 Mg Tablet 75 MG PO QAM Duloxetine (Duloxetine) 60 Mg Capsule.dr 60 MG PO QAM Fentanyl 50 mcg/hr Patch (Fentanyl 50 mcg/hr Patch) 1 Each Patch.td72 1 EACH TOP Q3D Furosemide (Furosemide) 20 Mg Tab 20 MG PO DAILY Hydrocodone-Acetaminophen 5-325 mg (Hydrocodone-Acetaminophen 5-325 mg) 1 Each Tablet 2 EACH PO BID Metoprolol Succinate ER (Metoprolol Succinate ER) 25 Mg Tab.er.24h 25 MG PO BID Nortriptyline (Nortriptyline) 50 Mg Capsule 50 MG PO HS Pantoprazole (Pantoprazole DR) 40 Mg Tablet.dr 40 MG PO QAM Pravastatin (Pravachol) 40 Mg Tab 40 MG PO HS Ranitidine (Ranitidine) 150 Mg Capsule 150 MG PO HS Tizanidine (Tizanidine) 2 Mg Tablet 2 MG PO BID Scheduled PRN Diclofenac Gel (Diclofenac Gel) 100 Gm Tube 1 APPLIC TOPICAL QID PRN PRN For Pain TO FEET FOR GOUT/JOINT PAIN Nystatin (Nystop) 60 Gm Powder 1 APPLIC TP BID PRN PRN RASH/YEAST UNDER BREAST TO PREVENT YEAST/RASH General Time Seen by MD: 11:31 Chief Complaint Other (Ground level fall ) Hx Obtained From: Patient Arrived By: Ambulance Sudden in Onset?: Yes Onset Occurred: 31 - 45 minutes ago Caused by: Fall on ground Location: : Head Quality: Painful Severity: Current: Mild Severity: Maximum: Mild Associated with: Reports: Nausea Pertinent Negative: Pt denies other symptoms Context Related History: Reports Cancer Recent Healthcare: Recent doctor visit Similar Sx Previous: No Past Medical History Past Medical History Unspecified CHF with mitral valve regurgitation Aortic stenosis Depression GERD Gout Anxiety/Insomnia CVA - small lacunar infarcts in bilateral BG in 2006 Chronic anemia on iron replacement therapy Renal Cell Carcinoma s/p right nephrectomy 4 years ago Breast cancer, 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 - followed by wound center DVT L arm Melanoma Reports: Asthma, Hyperlipidemia, Hypertension Reports: Renal insufficiency Past Surgical History Lumpectomy right breast Left breast mastectomy Nephrectomy of right kidney with axillary lymph node removal Left clavicular fracture repair Cholecystectomy Hysterectomy in her 30's Cataracts bilaterally Low back surgery x 2 Appendectomy Tonsillectomy Aortic valve replacement at [facility] Ovary removal Family History Father of [place] at 50, was a chronic smoker and alcoholic Mother of [place] in her late 60's, was a chronic smoker and alcoholic Smoking History Never Smoker Social History Moved to area from [place] on November 2014. Previous suicide attempt Alcohol Use: Denies alcohol use Drug Use: Denies drug use Other Social History: Good social support, , Local resident Occupation lives with Ambulatory Status Independent Review of Systems Full Review of Systems Constitutional: Denies: Fever Ears / Nose / Throat: Denies: Sore throat Respiratory: Denies: Shortness of breath Cardiovascular: Denies: Chest pain, Palpitations GI: Reports: Nausea, Denies: Abdominal pain Female: Denies: Dysuria Musculoskeletal: Denies: Back pain, Neck pain Skin: Denies Rash Allergy / Immune: Denies: Itching Neurologic: Reports: Lightheaded, Denies: Change LOC, Focal weakness, Headache, Numbness, Vision change Complete sys rev & neg: except as marked. Physical Exam Nursing note and vitals reviewed. Constitutional: Well-developed, well-nourished. Not diaphoretic. Head: Normocephalic and atraumatic. Mouth/Throat: Oropharynx is clear and moist. No oropharyngeal exudate. Eyes: EOM are normal. Pupils are equal, round, and reactive to light. Neck: Supple, no tracheal deviation. Cardiovascular: Normal rate, regular rhythm. Equal and intact distal pulses throughout. 2/6 systolic murmur. Pulmonary/Chest: Effort normal and breath sounds normal. No respiratory distress. Abdominal: Soft. No distension. There is no tenderness, no rebound, or guarding. Musculoskeletal: Range of motion grossly intact, moving all extremities. No edema or tenderness appreciated. Neurological: AOx3. Grossly nonfocal exam. Strength and sensation intact and equal to bilateral upper and lower extremities. Normal finger to nose testing. Skin: Warm and dry, no rashes or pallor appreciated. Abrasion to the R parietal scalp that is hemostatic now, no active bleeding. Psychiatric: Appropriate mood and affect. Behavior appears normal. Vital Signs Vital Signs Date Time Temp Pulse Resp B/P Pulse Ox O2 Delivery O2 Flow Rate FiO2 06/29/17 15:58 36.6 59 12 151/77 94 Room Air 06/29/17 11:06 36.0 77 17 120/88 98 Room Air Interpretation & Diagnostics Lab Results Interpretation Result Diagram: 06/29/17 1115 06/29/17 1115 Test 06/29/17 11:15 06/29/17 12:25 White Blood Count 7.9th/mm3 (3.8-10.1) Red Blood Count 3.66mil/mm3 (3.90-5.20) Hemoglobin 11.3g/dL (12.0-15.6) Hematocrit 34.4% (35.0-46.0) Mean Corpuscular Volume 94.0fL (81-100) Mean Corpuscular Hemoglobin 30.9pg (27.0-35.0) Mean Corpuscular Hemoglobin Concent 32.8% (32.0-37.0) Red Cell Distribution Width 14.3% (12.3-15.4) Platelet Count 155bil/L (150-400) Neutrophils (%) (Auto) 55.8% (40-74) Lymphocytes (%) (Auto) 32.8% (14-46) Monocytes (%) (Auto) 7.6% (4-12) Eosinophils (%) (Auto) 3.2% (0-5) Basophils (%) (Auto) 0.3% (0-3) Prothrombin Time 10.8sec (8.1-12.5) Prothromb Time International Ratio 1.01ratio Sodium Level 131mEq/L (134-144) Potassium Level 4.0mEq/L (3.5-5.2) Chloride Level 95mEq/L (97-108) Carbon Dioxide Level 22mmol/L (18-29) Blood Urea Nitrogen 16mg/dL (8-27) Creatinine 1.04mg/dL (0.57-1.00) Estimat Glomerular Filtration Rate 73mL/min (>59) Glucose Level 121mg/dL (60-99) Calcium Level 9.0mg/dL (8.5-10.1) Magnesium Level 1.5mg/dL (1.6-2.6) Total Bilirubin 0.4mg/dL (0.0-1.2) Aspartate Amino Transf (AST/SGOT) 22U/L (0-50) Alanine Aminotransferase (ALT/SGPT) 9U/L (0-32) Alkaline Phosphatase 100U/L (25-165) Troponin T 0.010ug/L (0.0-0.011) Pro-B-Type Natriuretic Peptide 352.6pg/mL (0-738) Total Protein 6.7g/dL (6.4-8.4) Albumin 3.9g/dL (3.4-5.0) Urine Color Yellow (YELLOW) Urine Appearance Clear (CLEAR,HAZY) Urine pH 6.0 (5.0-8.0) Urine Specific [place] 1.009 (1.003-1.035) Urine Protein Negativemg/dL (NEG,TRACE) Urine Glucose (UA) Negativemg/dL (NEGATIVE) Urine Ketones Negativemg/dL (NEGATIVE) Urine Occult Blood Negative (NEGATIVE) Urine Nitrite Negative (NEGATIVE) Urine Bilirubin Negative (NEGATIVE) Urine Urobilinogen Normalmg/dL (NORMAL) Urine Leukocyte Esterase Moderate (NEGATIVE) Urine RBC 0-2/hpf (0-2) Urine WBC 0-5/hpf (0-5) Urine Epithelial Cells Few/hpf (NONE-MOD) Urine Crystals None seen (NONE SEEN) Urine Bacteria Few/hpf (NONE-FEW) Urine Hyaline Casts Occasional/lpf (NONE) Urine Granular Casts None seen (NONE SEEN) Urine Waxy Casts None seen (NONE SEEN) Urine Red Blood Cell Casts None seen (NONE SEEN) Urine White Blood Cell Casts None seen (NONE SEEN) Urine Mucus None seen (None Seen) Urine Trichomonas None seen (NONE SEEN) Urine Yeast None (NONE SEEN) Urinalysis Comment Renal epi seen Urine Culture Reflexed Indicated Hold Urine Received (Received) ECG Interpretation ECG Interpretation: Sinus arrhythmia rate 72 LVH Time: 11:29 Interpreted by: ED physician X-Ray Chest Interpretation Chest Xray Interpretation: IMPRESSION: Stable chest. No acute cardiopulmonary process is evident. Dictated by: Froy Alexander M.D. on 06/29/2017 at 10:59 Approved by: Froy Alexander M.D. on 06/29/2017 at 11:00 View: Portable, 1 view Interpretation / Wet Read by: Interpret - Radiologist CT Head Interpretation IMPRESSION: 1. No acute intracranial abnormality. 2. Right posterior parietal and occipital scalp hematoma without evidence of fracture. 3. Mild chronic white matter small vessel ischemic changes and cerebral volume loss. Dictated by: Evangelista Brooks M.D. on 06/29/2017 at 11:59 Approved by: Evangelista Brooks M.D. on 06/29/2017 at 12:01 Study: Head CT no contrast Interpretation / Wet Read by: Interpret - Radiologist CT C-Spine Interpretation IMPRESSION: 1. No acute fracture or subluxation. 2. Postsurgical changes redemonstrated in the cervical spine. Dictated by: Evangelista Brooks M.D. on 06/29/2017 at 12:01 Approved by: Evangelista Brooks M.D. on 06/29/2017 at 12:11 Study type: CT no contrast Interpretation / Wet Read by: Interpret - Radiologist Re-Eval/Medical Decision Med Decision/Clinical Course In summary, 77-year-old female with a competent past medical history including CHF, aortic stenosis, mitral regurg presenting to the ED for evaluation of a syncopal episode earlier today. Differential is broad and includes dysrhythmia , CHF exacerbation, aortic stenosis, metabolic abnormality, acute intracranial abnormality, etc. EKG demonstrates a sinus arrhythmia with a rate of 72, no acute ischemic changes appreciated. Troponin negative. No chest pain or palpitations during, before, or after the episode. CT of the patient's head and cervical spine negative for acute abnormality; able to clear the patient's C -spine at bedside. She does have a small abrasion to her right parietal scalp that has become hemostatic without intervention. No need for jamal at this time. Chest x-ray demonstrates no acute abnormalities including no pneumonia. Laboratory studies notable for a sodium of 131, magnesium of 1.5, hemoglobin of 11.3, relatively stable from previous. Urinalysis demonstrates moderate leukocyte esterase, however no white blood cells on microscopy. Tetanus updated. Given the patient's complex past medical history including her cardiac history with CHF and aortic stenosis, decision made to admit the patient for further management and evaluation, possible echocardiogram. Patient agreeable to the plan as stated, no further questions. Time of Eval: 15:24 Re-Evaluation/Progress Note: Discussed plan for admission. Patient understands and agrees with plan. All questions addressed at this time. Consultation : Referral / Consult Name: Buzz Hauser MD Consulted With: Hospitalist Workers Compensation Analyst: Agrees with eval, Agrees with plan, Accepts admit Counseled Regarding: Diagnosis, Lab results, Need for admission Discharge & Departure Primary Impression: Syncope Syncope type: unspecified Qualified Code: R55 - Syncope and collapse Disposition: ADMITTED TO HOSPITAL Discharge Condition All VS Reviewed: Yes Condition: Stable Referrals: Krish Armstrong MD (PCP) Thierno Attestation Portions of this note were transcribed by Isai Singh. I, Dr. Gupta personally performed the history, physical exam and medical decision-making; I reviewed and confirmed the accuracy of the information in the transcribed note. Signed by: Thierno Ramey, 06/29/17 copies to: Krish Armstrong MD, William B MD Jun 29, 2017 12:10 ISAI SINGH Jun 29, 2017 12:14
--- NOTE | 2017-06-29 12:13 | DRSVH ---
PROCEDURE: CT CERVICAL SPINE WITHOUT CONTRAST ([id number]) INDICATIONS: fell hit back of head on blood thinners c/o neck pain TECHNIQUE: Noncontrast 3 mm thick sections acquired from the skull base to the T4 level. Sagittal and coronal r eformats were then constructed. For radiation dose reduction, the following was used: automated exp osure control, adjustment of mA and/or kV according to patient size. COMPARISON: [facility], CT, CT CERVICAL SPINE WO CON, 11/09/2016, 16:22. FINDINGS: Image quality: There is mild streak artifact associated with patient's surgical hardware. Bones: No fractures or dislocations. There is osteopenia. Postsurgical changes are redemonstrated status post ACDF at C4-C6. There is partial fusion also noted at C3-C4. Cortical irregularity is re demonstrated along the superior endplate of C7. There is mild disc space narrowing at C6-C7 and C7-T 1. There is epidural calcification posteriorly along the left aspect of C6-C7 redemonstrated. Visua lized superior ribs are intact. Soft tissues: Prevertebral soft tissues are normal in thickness. No paravertebral hematomas. No ap ical pneumothoraces. IMPRESSION: 1. No acute fracture or subluxation. 2. Postsurgical changes redemonstrated in the cervical spine. Dictated by: Evangelista Brooks M.D. on 06/29/2017 at 12:01 Approved by: Evangelista Brooks M.D. on 06/29/2017 at 12:11
[2017-06-29 13:03] LABS: APPEARANCE,URINE CLEAR (CLEAR,HAZY); COLOR,URINE YELLOW (YELLOW); OCCULT BLOOD,URINE NEGATIVE (NEGATIVE); UROBILINOGEN,URINE NORMAL (NORMAL)
[2017-06-29 15:58] VITALS: BP 151/77; PULSE 59; RESP 12; O2SAT 94
[2017-06-29] MEDS ORDERED: Magnesium Sulf 2 Gm/50mL Water 2 GM in IV Premix 1 EACH IV ONE (16:30)
[2017-06-29] MEDS ORDERED: TdaP Vaccine 0.5 mL Inj IM ONE (16:35)
[2017-06-29] MEDS ORDERED: HYDROcodone-APAP 5-325 mg Tablet PO ONE (16:35)
[2017-06-29] MEDS ORDERED: Ondansetron 2 mg/mL 2 mL Inj IVPUSH PRN (16:50)
[2017-06-29] MEDS ORDERED: Alum-Mag Hydrox-Simeth 30 mL Suspension PO PRN (16:50)
[2017-06-29] MEDS ORDERED: Polyethylene Glycol (PEG) 17 Gm Powder PO PRN (16:50)
[2017-06-29] MEDS: 0.9% Sodium Chloride 1,000 ML IV SCH (16:57)
[2017-06-29] MEDS ORDERED: RANI150C4 PO (16:59)
[2017-06-29] MEDS ORDERED: DULO60CA61 PO (16:59)
[2017-06-29] MEDS ORDERED: NYST60PO TP (16:59)
[2017-06-29] MEDS ORDERED: PANT40TA3 PO (16:59)
[2017-06-29] MEDS ORDERED: DICL100G26 TOPICAL (16:59)
[2017-06-29] MEDS ORDERED: ASPI81TA3 PO (17:13)
--- NOTE | 2017-06-29 17:43 | PCM.HPMED ---
Subjective Date of Service Jun 29, 2017 Primary Provider: Admitting Physician: Buzz Hauser MD Primary Care Physician: Krish Armstrong MD Attending Physician: Buzz Hauser MD Admit Status: From the Emergency Department, 23-Hour Observation Chief Complaint: Ground-level fall and syncope/1hr History of Present Illness: 77 yo Pleasant lady GERD, depression, gout, anxiety, right renal ca status post right nephrectomy, right breast CA status post mastectomy, s/p TAVR on 08/16/16 for aortic stenosis presented to the emergency room due to ground-level fall and syncope 1hr prior to presentation. She had some dental work done 10 days ago. She had stitch in her mouth/gum. She has not been eating or drinking much for the last 10 days. She went to dentist office today for stitch removal. She has been feeling lightheaded this morning. She told her that she is feeling lightheaded and would fall . She sustained a ground-level fall when she left her dentist office.hit her head and sustained laceration and hematoma on occiput area. EMS was called and was reportedly had orthostatic hypotension. IV fluids started in brought to ED She has been taking her diuretic religiously. No palpitation or chest pain. ED course: Initial BP 120/80, scalp hematoma and laceration noted. CT brain negative for intracranial bleeding. Creatinine 1.04(baseline 0.8), magnesium 1.5, sodium 131 Review of Systems: Comprehensive review of systems performed, pertinent positives and negatives included in history of present illness Allergies Coded Allergies: venlafaxine (Verified Allergy, Severe, rash, 01/13/17) Pt reports bruising all over body, increased swelling hydroxyzine (Verified Allergy, Unknown, agitation, 01/13/17) Home Medications Allopurinol (Allopurinol) 300 Mg Tablet 300 MG PO HS Alprazolam (Alprazolam) 0.5 Mg Tablet 0.5 MG PO DAILY Clopidogrel Bisulfate (Plavix) 75 Mg Tablet 75 MG PO DAILY Desvenlafaxine Succinate ER (Pristiq ER) 100 Mg Tab.er.24h 50 MG PO DAILY TAKE 50MG DAILY Fentanyl 50 mcg/hr Patch (Fentanyl 50 mcg/hr Patch) 1 Each Patch.td72 1 EACH TOP Q3D Furosemide (Furosemide) 20 Mg Tab 20 MG PO DAILY Hydrocodone-Acetaminophen 5-325 mg (Hydrocodone-Acetaminophen 5-325 mg) 1 Each Tablet 2 EACH PO BID Metoprolol Succinate ER (Metoprolol Succinate ER) 25 Mg Tab.er.24h 25 MG PO BID Nortriptyline (Nortriptyline) 50 Mg Capsule 50 MG PO HS Pantoprazole DR (Pantoprazole DR) 20 Mg Tablet.dr 20 MG PO DAILY Pravastatin (Pravachol) 40 Mg Tab 40 MG PO HS Tizanidine (Tizanidine) 2 Mg Tablet 2 MG PO Q12H PMH per chart and verified with patient Aortic stenosis s./p TAVR Depression GERD Gout Anxiety/Insomnia CVA - small lacunar infarcts in bilateral BG in 2006 Chronic anemia on iron replacement therapy Renal Cell Carcinoma s/p right nephrectomy 4 years ago Breast cancer, 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) s/p right lumpectomy and axillary lymph node removal 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 - followed by wound center DVT L arm Melanoma Reports: Asthma, Hyperlipidemia, Hypertension Reports: Renal insufficiency Surgical History per chart and verified with patient Lumpectomy right breast Left breast mastectomy Nephrectomy of right kidney with axillary lymph node removal Left clavicular fracture repair Cholecystectomy Hysterectomy in her 30's Cataracts bilaterally Low back surgery x 2 Appendectomy Tonsillectomy Aortic valve replacement at TAVR Ovary removal Family History per chart and verified with patient Father of [place] at 50, was a chronic smoker and alcoholic Mother of [place] in her late 60's, was a chronic smoker and alcoholic Social History Hx Alcohol Use: No Hx Substance Use: No Hx Tobacco Use: No Smoking Status: Never Smoker Exam Vital Signs Vital Sign - Last Date Time Temp Pulse Resp B/P Pulse Ox O2 Delivery O2 Flow Rate FiO2 06/29/17 15:58 36.6 59 12 151/77 94 Room Air Exam Gen. patient is lying comfortably in hospital bed HEENT:1 cm occipital laceration and bruises. No active bleeding. Lungs clear to auscultation bilaterally Heart regular rate and rhythm without murmurs gallops or rubs Abdomen soft nontender without hepatosplenomegaly Extremities pulses are present dorsalis pedis posterior tibialis and radial. tSkin is warm and dry there are no rashes, Psych alert and oriented to person place and time Neuro cranial nerves II through XII are grossly intact Lymph: There is no lymphadenopathy appreciated in the cervical supra infraclavicular regions : no no Lab and Diagnostics Result Diagram: 06/29/17 1115 06/29/17 1115 X-Rays, CTs and MRIs PROCEDURE: CT CERVICAL SPINE WITHOUT CONTRAST ([id number]) INDICATIONS: fell hit back of head on blood thinners c/o neck pain IMPRESSION: 1. No acute fracture or subluxation. 2. Postsurgical changes redemonstrated in the cervical spine. Dictated by: Evangelista Brooks M.D. on 06/29/2017 at 12:01 PROCEDURE: CT BRAIN WITHOUT CONTRAST ([id number]) INDICATIONS: GLF ON BLOOD THINNERS hit back of head bleeding IMPRESSION: 1. No acute intracranial abnormality. 2. Right posterior parietal and occipital scalp hematoma without evidence of fracture. 3. Mild chronic white matter small vessel ischemic changes and cerebral volume loss. Dictated by: Evangelista Brooks M.D. on 06/29/2017 at 11:59 Assessment & Plan 77 yo Pleasant lady GERD, depression, gout, anxiety, right renal ca status post right nephrectomy, right breast CA status post mastectomy, s/p TAVR on 08/16/16 for aortic stenosis presented to the emergency room due to ground-level fall and syncope 1hr prior to presentation. # Syncope due to orthostatic hypotension due to poor oral intake due to recent dental work in setting of diuretic use ,poa -NS at 100ml/h -no furthuer workup -telemetry -Laceration small and hemostatic no need for stitching -Hold Plavix and aspirin for now -Hold Lasix # History of upper extremity DVT -Hold aspirin and Plavix for today. # history of Renal Cell Carcinoma s/p Nephrectomy # Hyperlipidemia - continue home Pravastatin # Hypertension - c/w Metoprolol # Depression and Anxiety - continue Alprazolam 0.5 mg PRN and scheduled Pristiq # Chronic pain syndrome with Fibromyalgia - continue Fentanyl patch with PRN Hydrocodone/APAP 5/325 mg 1 tab q 6 hours PRN # Gout - continue Allopurinol 300 mg daily # h/o Cerebrovascular disease - history of small lacunar infarcts in 2006 Full code per patient Observation status copies to: Krish Armstrong MD, Melaku MD Jun 29, 2017 17:43
--- NOTE | 2017-06-29 18:00 | NUR ---
Admit Patient arrived on unit A&Ox3. VS WNL. IV Mg and NS running. Pt c/o 05/03 posterior occipital pain and dizziness. Fall precautions in place. Pt has occipital hematoma and bandaide on forehead from removal of skin cancer. Med rec completed in ER and pt has med list in purse. Pt ambulated with this RN and cane to restroom: mildly unsteady gait. Pt is eating dinner and in bed with alarm on. Physical assessment not complete. Fentyal patch on posterior shoulder
[2017-06-29 18:15] VITALS: BP 135/83; PULSE 67; RESP 16; O2SAT 96
[2017-06-29 18:32] VITALS: PULSE 76
[2017-06-29 20:00] VITALS: PULSE 76
[2017-06-29 20:07] VITALS: BP 155/58; PULSE 74; RESP 18; O2SAT 98
[2017-06-29] MEDS ORDERED: ALPRAZolam 0.5 mg Tablet PO SCH (21:00)
[2017-06-29] MEDS: MeTOProlol XL 25 mg ER24 Tablet PO SCH (21:12)
[2017-06-29] MEDS: HYDROcodone-APAP 5-325 mg Tablet PO SCH (21:13)
[2017-06-30 00:19] VITALS: BP 133/71; PULSE 68; RESP 18; O2SAT 96
[2017-06-30] MEDS: 0.9% Sodium Chloride 1,000 ML IV SCH (04:34)
[2017-06-30 05:12] VITALS: BP 120/58; PULSE 79; RESP 16; O2SAT 93
--- NOTE | 2017-06-30 06:13 | NUR ---
Pain: Pt c/o FERRARI this am; contacted and new x1 order for Tylenol received. Pt slept most of the night, AOx3, very pleasant and cooperative with care.
[2017-06-30 06:24] LABS: BASOPHILS % (AUTO) 0.1 % (0-3); EOSINOPHILS % (AUTO) 1.1 % (0-5); MONOCYTES % (AUTO) 0.8 % (4-12); Mean Corpuscular Hemoglobin 30.1 pg (27.0-35.0); Mean Corpuscular Volume 85.7 fL (81-100); NEUTROPHILS % (AUTO) 89.5 % (40-74); Platelet Count 176 bil/L (150-400)
[2017-06-30 06:42] LABS: Magnesium 2.3 mg/dL (1.6-2.6)
[2017-06-30] MEDS: MeTOProlol XL 25 mg ER24 Tablet PO SCH (07:40)
[2017-06-30] MEDS: Pantoprazole 40 mg ER24 Tablet PO SCH (07:40)
[2017-06-30] MEDS: HYDROcodone-APAP 5-325 mg Tablet PO SCH (07:41)
[2017-06-30 08:38] VITALS: BP 151/86; PULSE 73; RESP 18; O2SAT 95
--- NOTE | 2017-06-30 08:40 | NUR ---
Social Work-initial assessment/readiness for discharge: Data:See initial assessment. Pt is a 77 y/o female who was admitted on 06/29/17 for syncope per H&P. Pt's insurance is [employer] and PCP is Krish Armstrong MD. EMR reviewed. Pt's readmission score is 3-high risk. No Md orders have been received. SW met with pt to discuss discharge planning, SW role explained. Pt is alert and oriented x3. Pt resides at home with her in [facility] where she remains independent with ADLS. Pt does not drive and uses either a fww or cane at baseline. Pt has no SNF history, but has history with [facility]. Pt has no fdc care insurance or VA benefits. SW discussed DPOA/advanced directive, pt confirms she has the paperwork and is working on it, SW encouraged pt to complete this. Pt confirms her or daughter will provide transport home. Per RN notes, pt has been up independent in her room. No concerns noted from RN or MD regarding capacity for self care. SW provided pt with discharge planning checklist and encouraged a copy to be brought in, SW encouraged pt to call with any questions,phone number provided on white board in room. No anticipated discharge needs. SW will continue to follow if needs arise. Assessment:pt who is independent at baseline. Plan:Pt to discharge home when medically stable via POV. No anticipated discharge needs. SW will continue to follow if needs arise. GIFTY Drew Addendum: 06/30/17 at 0849 by OLAMIDE ALTAMIRANO Amended: Links added.
[2017-06-30 08:43] VITALS: BP_SYST 146; BP_SYST 171; BP_DIAS 74; BP_DIAS 81
[2017-06-30] MEDS ORDERED: Amoxicillin-Clav 875-125 mg Tablet PO SCH (09:05)
[2017-06-30 10:08] VITALS: PULSE 70
--- NOTE | 2017-06-30 10:40 | PCM.DIMED ---
Discharge Instructions Date of Service Jun 30, 2017 Dates of Hospitalization Jun 29, 2017 at 16:21 Discharge Diagnosis Discharge Diagnosis # Syncope due to orthostatic hypotension due to poor oral intake due to recent dental work in setting of diuretic use ,poa # History of upper extremity DVT # history of Renal Cell Carcinoma s/p Nephrectomy # Hyperlipidemia # Hypertension # Depression and Anxiety # Chronic pain syndrome with Fibromyalgia # Gout # h/o Cerebrovascular disease Diet Discharge Diet: Low fat, Low Sodium, Heart Healthy Activity Discharge Activity: Limited until seen by PCP Call your provider Call your provider for: Fever or Chills, Shortness of breath, Bleeding, Chest pain, Vomitting, Excessive diarrhea, Weakness (unilateral) Patient Instructions Patient Instructions You were hospitalized due to syncope and fall due to dehydration secondary to poor oral intake due to recent dental surgery.You were also on diuretics/water pill and contributed to dehydration. Please yourself hydrated. I am hoping that would be able to eat and drink more given the fact that the stitch was removed yesterday. You can restart your Plavix and aspirin tomorrow. It has been on hold due to scalp laceration. You can also resume your Lasix tomorrow . You also had urinary tract infection. Please take amoxicillin for 3 more days. Follow-up Provider: Krish Armstrong MD Follow-up with PCP in: 1 week Buzz Hauser MD Jun 30, 2017 10:40
[2017-06-30] MEDS ORDERED: AMOX875T2 PO (10:42)
--- NOTE | 2017-06-30 11:03 | NUR ---
Social Work-discharge: Data:EMR Reviewed. Pt is on day 1 of hospitalization for syncope per H&P. Pt is medically stable for discharge. Pt has been up independent in her room. Pt confirms her family will provide transport home. No discharge needs identified. All updated and agreeable to plan. Assessment:Pt who is independent at baseline. Plan:Pt to discharge home today via POV. No discharge needs identified. All updated and agreeable to plan. GIFTY Drew
--- NOTE | 2017-06-30 11:53 | NUR ---
Case Management- ROSE explained and signed/timed by patient. Copy given to patient. Original placed in chart. Hien Singh RN, CCM
--- NOTE | 2017-06-30 12:01 | NUR ---
Discharge New orders for discharge, reviewed discharge paper work, discharge prescription for PO ABO and continuing home medications and follow up appointment with patient and spouse. patient understood and signed discharge paper work. patient will call and schedule appointment with PCP. Discontinued IV to left arm and ekg monitor notified. patient left unit approx 1130 via wheel chair with spouse accompained by nursing staff. Denies pain or any other discomfort prior to discharge.
--- NOTE | 2017-06-30 19:56 | PCM.DC.MED ---
Discharge Summary Date of Service Jun 30, 2017 Dates of Hospitalization Date of Hospital Admission Jun 29, 2017 at 16:21 Date of Discharge: Jun 30, 2017 Providers: Admitting Physician: Buzz Hauser MD Primary Care Physician: Krish Armstrong MD Attending Physician: Buzz Hauser MD Diagnosis at Time of Discharge Diagnosis at Time of Discharge # Syncope due to orthostatic hypotension due to poor oral intake due to recent dental work in setting of diuretic use ,poa # History of upper extremity DVT # history of Renal Cell Carcinoma s/p Nephrectomy # Hyperlipidemia # Hypertension # Depression and Anxiety # Chronic pain syndrome with Fibromyalgia # Gout # h/o Cerebrovascular disease Procedures XRay, CTs & MRIs PROCEDURE: CT CERVICAL SPINE WITHOUT CONTRAST ([id number]) INDICATIONS: fell hit back of head on blood thinners c/o neck pain IMPRESSION: 1. No acute fracture or subluxation. 2. Postsurgical changes redemonstrated in the cervical spine. Dictated by: Evangelista Brooks M.D. on 06/29/2017 at 12:01 PROCEDURE: CT BRAIN WITHOUT CONTRAST ([id number]) INDICATIONS: GLF ON BLOOD THINNERS hit back of head bleeding IMPRESSION: 1. No acute intracranial abnormality. 2. Right posterior parietal and occipital scalp hematoma without evidence of fracture. 3. Mild chronic white matter small vessel ischemic changes and cerebral volume loss. Dictated by: Evangelista Brooks M.D. on 06/29/2017 at 11:59 Brief History per HPI 77 yo Pleasant lady GERD, depression, gout, anxiety, right renal ca status post right nephrectomy, right breast CA status post mastectomy, s/p TAVR on 08/16/16 for aortic stenosis presented to the emergency room due to ground-level fall and syncope 1hr prior to presentation. She had some dental work done 10 days ago. She had stitch in her mouth/gum. She has not been eating or drinking much for the last 10 days. She went to dentist office today for stitch removal. She has been feeling lightheaded this morning. She told her that she is feeling lightheaded and would fall . She sustained a ground-level fall when she left her dentist office.hit her head and sustained laceration and hematoma on occiput area. EMS was called and was reportedly had orthostatic hypotension. IV fluids started in brought to ED She has been taking her diuretic religiously. No palpitation or chest pain. ED course: Initial BP 120/80, scalp hematoma and laceration noted. CT brain negative for intracranial bleeding. Creatinine 1.04(baseline 0.8), magnesium 1.5, sodium 131 Hospital Course 77 yo Pleasant lady GERD, depression, gout, anxiety, right renal ca status post right nephrectomy, right breast CA status post mastectomy, s/p TAVR on 08/16/16 for aortic stenosis presented to the emergency room due to ground-level fall and syncope 1hr prior to presentation. # Syncope due to orthostatic hypotension due to poor oral intake due to recent dental work in setting of diuretic use ,poa -treated with NS at 100ml/h -no furthuer workup -telemetry unrevealing -Laceration small and hemostatic no need for stitching -Hold Plavix and aspirin for today and may resume tomorrow -Hold Lasix for today and resume tomorrow -dental stictch removed and patient states she will be eating and drinking better no more orthostatic and patient asymptomatic today # asymptomatic UTI -new leukocytosis of 17 from 7.9 yesterday and GBS on urine culture -treated with unasyn and discharged on amoxacillin.may have contributed to the fall # History of upper extremity DVT -Hold aspirin and Plavix for today and resume tomorrow # history of Renal Cell Carcinoma s/p Nephrectomy # Hyperlipidemia - continue home Pravastatin # Hypertension - c/w Metoprolol # Depression and Anxiety - continue Alprazolam 0.5 mg PRN and scheduled Pristiq # Chronic pain syndrome with Fibromyalgia - continue Fentanyl patch with PRN Hydrocodone/APAP 5/325 mg 1 tab q 6 hours PRN # Gout - continue Allopurinol 300 mg daily # h/o Cerebrovascular disease - history of small lacunar infarcts in 2006 Full code per patient Observation status discharge home condition stable Exam Vital Signs (Last) Date Time Temp Pulse Resp B/P Pulse Ox O2 Delivery O2 Flow Rate FiO2 06/30/17 10:08 70 06/30/17 08:43 146/81 06/30/17 08:38 36.7 18 95 Room Air Exam Gen. patient is lying comfortably in hospital bed HEENT:1 cm occipital laceration and bruises. No active bleeding. Lungs clear to auscultation bilaterally Heart regular rate and rhythm without murmurs gallops or rubs Abdomen soft nontender without hepatosplenomegaly Extremities pulses are present dorsalis pedis posterior tibialis and radial. tSkin is warm and dry there are no rashes, Psych alert and oriented to person place and time Neuro cranial nerves II through XII are grossly intact Lymph: There is no lymphadenopathy appreciated in the cervical supra infraclavicular regions : no no Test 06/29/17 11:15 06/29/17 12:25 06/30/17 06:10 Prothrombin Time 10.8sec (8.1-12.5) Prothromb Time International Ratio 1.01ratio Troponin T 0.010ug/L (0.0-0.011) Pro-B-Type Natriuretic Peptide 352.6pg/mL (0-738) Urine Color Yellow (YELLOW) Urine Appearance Clear (CLEAR,HAZY) Urine pH 6.0 (5.0-8.0) Urine Specific [place] 1.009 (1.003-1.035) Urine Protein Negativemg/dL (NEG,TRACE) Urine Glucose (UA) Negativemg/dL (NEGATIVE) Urine Ketones Negativemg/dL (NEGATIVE) Urine Occult Blood Negative (NEGATIVE) Urine Nitrite Negative (NEGATIVE) Urine Bilirubin Negative (NEGATIVE) Urine Urobilinogen Normalmg/dL (NORMAL) Urine Leukocyte Esterase Moderate (NEGATIVE) Urine RBC 0-2/hpf (0-2) Urine WBC 0-5/hpf (0-5) Urine Epithelial Cells Few/hpf (NONE-MOD) Urine Crystals None seen (NONE SEEN) Urine Bacteria Few/hpf (NONE-FEW) Urine Hyaline Casts Occasional/lpf (NONE) Urine Granular Casts None seen (NONE SEEN) Urine Waxy Casts None seen (NONE SEEN) Urine Red Blood Cell Casts None seen (NONE SEEN) Urine White Blood Cell Casts None seen (NONE SEEN) Urine Mucus None seen (None Seen) Urine Trichomonas None seen (NONE SEEN) Urine Yeast None (NONE SEEN) Urinalysis Comment Renal epi seen Urine Culture Reflexed Indicated Hold Urine Received (Received) White Blood Count 17.1th/mm3 (3.8-10.1) Red Blood Count 4.75mil/mm3 (3.90-5.20) Hemoglobin 14.3g/dL (12.0-15.6) Hematocrit 40.7% (35.0-46.0) Mean Corpuscular Volume 85.7fL (81-100) Mean Corpuscular Hemoglobin 30.1pg (27.0-35.0) Mean Corpuscular Hemoglobin Concent 35.1% (32.0-37.0) Red Cell Distribution Width 13.0% (12.3-15.4) Platelet Count 176bil/L (150-400) Neutrophils (%) (Auto) 89.5% (40-74) Lymphocytes (%) (Auto) 7.7% (14-46) Monocytes (%) (Auto) 0.8% (4-12) Eosinophils (%) (Auto) 1.1% (0-5) Basophils (%) (Auto) 0.1% (0-3) Sodium Level 139mEq/L (134-144) Potassium Level 4.5mEq/L (3.5-5.2) Chloride Level 105mEq/L (97-108) Carbon Dioxide Level 16mmol/L (18-29) Blood Urea Nitrogen 7mg/dL (8-27) Creatinine 0.60mg/dL (0.57-1.00) Estimat Glomerular Filtration Rate 138mL/min (>59) Glucose Level 156mg/dL (60-99) Calcium Level 8.6mg/dL (8.5-10.1) Magnesium Level 2.3mg/dL (1.6-2.6) Total Bilirubin 0.3mg/dL (0.0-1.2) Aspartate Amino Transf (AST/SGOT) 40U/L (0-50) Alanine Aminotransferase (ALT/SGPT) 31U/L (0-32) Alkaline Phosphatase 83U/L (25-165) Total Protein 7.0g/dL (6.4-8.4) Albumin 4.0g/dL (3.4-5.0) Procalcitonin 0.06ng/mL (0.00-0.08) Discharge Medications Discharge Medications Allopurinol (Allopurinol) 300 Mg Tablet 300 MG PO HS (Reported) Alprazolam (Alprazolam) 0.5 Mg Tablet 0.5 MG PO HS (Reported) Amoxicillin (Amoxicillin) 875 Mg Tablet 875 MG PO BID Prescribed by: BUZZ HAUSER MD Aspirin Chew (Aspirin Chew) 81 Mg Chew 81 MG PO QAM (Reported) Clopidogrel Bisulfate (Plavix) 75 Mg Tablet 75 MG PO QAM (Reported) Duloxetine (Duloxetine) 60 Mg Capsule.dr 60 MG PO QAM (Reported) Fentanyl 50 mcg/hr Patch (Fentanyl 50 mcg/hr Patch) 1 Each Patch.td72 1 EACH TOP Q3D (Reported) Furosemide (Furosemide) 20 Mg Tab 20 MG PO DAILY Prescribed by: HILLARY MCDANIELS MD Hydrocodone-Acetaminophen 5-325 mg (Hydrocodone-Acetaminophen 5-325 mg) 1 Each Tablet 2 EACH PO BID Prescribed by: LORRI HO DO Metoprolol Succinate ER (Metoprolol Succinate ER) 25 Mg Tab.er.24h 25 MG PO BID (Reported) Nortriptyline (Nortriptyline) 50 Mg Capsule 50 MG PO HS (Reported) Pantoprazole DR (Pantoprazole DR) 40 Mg Tablet.dr 40 MG PO QAM (Reported) Pravastatin (Pravachol) 40 Mg Tab 40 MG PO HS (Reported) Ranitidine (Ranitidine) 150 Mg Capsule 150 MG PO HS (Reported) Tizanidine (Tizanidine) 2 Mg Tablet 2 MG PO BID (Reported) As needed Diclofenac Gel (Diclofenac Gel) 100 Gm Tube 1 APPLIC TOPICAL QID PRN PRN For Pain (Reported) TO FEET FOR GOUT/JOINT PAIN Nystatin (Nystop) 60 Gm Powder 1 APPLIC TP BID PRN PRN RASH/YEAST (Reported) UNDER BREAST TO PREVENT YEAST/RASH Followup Plan Disposition: home Discharge Diet: Low fat, Low Sodium, Heart Healthy Discharge Activity: Limited until seen by PCP Patient Instructions You were hospitalized due to syncope and fall due to dehydration secondary to poor oral intake due to recent dental surgery.You were also on diuretics/water pill and contributed to dehydration. Please yourself hydrated. I am hoping that would be able to eat and drink more given the fact that the stitch was removed yesterday. You can restart your Plavix and aspirin tomorrow. It has been on hold due to scalp laceration. You can also resume your Lasix tomorrow . You also had urinary tract infection. Please take amoxicillin for 3 more days. Follow-up Provider: Krish Armstrong MD Follow-up with PCP in: 1 week copies to: Krish Armstrong MD, Melaku MD Jun 30, 2017 19:56
== END 2017-06-30 11:30 | disposition home or self-care (01) ==
LOC: EDBD 11:04 → SED 11:04 → MPC 16:21
PROVIDERS: ADMIT Internal Medicine; ATTEND Internal Medicine
DX: R55 Syncope and collapse (principal); I95.1 Orthostatic hypotension; S01.81XA Laceration without foreign body of other part of head, initial encounter; I10 Essential (primary) hypertension; E78.5 Hyperlipidemia, unspecified; I82.409 Acute embolism and thrombosis of unspecified deep veins of unspecified lower extremity; I50.9 Heart failure, unspecified; I35.0 Nonrheumatic aortic (valve) stenosis; J45.909 Unspecified asthma, uncomplicated; D50.9 Iron deficiency anemia, unspecified; K21.9 Gastro-esophageal reflux disease without esophagitis; G89.4 Chronic pain syndrome; M79.7 Fibromyalgia; F41.8 Other specified anxiety disorders; W18.30XA Fall on same level, unspecified, initial encounter; Y93.01 Activity, walking, marching and hiking; Y92.9 Unspecified place or not applicable; Y99.8 Other external cause status; Z88.8 Allergy status to other drugs, medicaments and biological substances; Z79.82 Long term (current) use of aspirin; Z86.73 Personal history of transient ischemic attack (TIA), and cerebral infarction without residual deficits; Z85.3 Personal history of malignant neoplasm of breast; Z85.528 Personal history of other malignant neoplasm of kidney; Z90.710 Acquired absence of both cervix and uterus; Z79.02 Long term (current) use of antithrombotics/antiplatelets
CPT/HCPCS: 36415; 70450; 71010; 72125; 80053; 81000; 83735; 83880; 84145; 84484; 85025; 85610; 87086; 87147; 90715; 93005; 96374; 99285; G0378; J7030